=== PATIENT | female | born 1975 | race Caucasian/White ===

== ENCOUNTER 2021-07-12 15:58 | Emergency (ER) | payer OTHER, SELFPAY ==
[2021-07-12 16:02] VITALS: BP 123/82; PULSE 84; RESP 18; TEMP 36.8; O2SAT 98; BMI 31.9
== END 2021-07-12 21:00 | disposition left against medical advice (07) ==
PROVIDERS: Emergency Provider Emergency Medicine; PCP Family Medicine
DX: R26.2 Difficulty in walking, not elsewhere classified (principal)
CPT/HCPCS: 99281; 99282

== ENCOUNTER 2024-03-27 13:11 | Outpatient (AMB) | payer OTHER, SELFPAY ==
--- NOTE | 2024-03-27 13:13 | MHC.OFFVIS ---
Vital Signs 03/27/24 13:17 Height 5 ft 4 in Weight 192 lb BMI 33.0 BP 130/92 H Blood Pressure Location Lt brachial Position Sitting Pulse 88 Pulse Source Pulse Oximeter Pulse Oximetry (%) 99 Oxygen Delivery Method Room Air Intake Visit Reasons: Multiple Sclerosis Intake Note: Pain today 8/10 Relay Tester Helper Required: Yes Relay Tester Helper Language: Outpatient Phlebotomist Name: Daughter- Waldo Allergies vancomycin [VANCOMYCIN] Allergy (Severe, Verified 07/12/21 16:02) ITCHINESS HPI HPI Multiple Sclerosis: Details: Patient is a 49 years old Uzbek speaking female with sclerosis (onset 2006), depression, migraine headaches, presents today for initial evaluation of low back pain. Denies any inciting events, trauma, injury, or falls. Patient reports remote history of injections and physical therapy at [facility]. Back pain is axial in also radiates into left buttock and left lateral hip consistent this left sacroiliac joint pain and piriformis syndrome. She recently completed MRIs [facility] which showed mild disc bulges at L4-L5 and L5-S1, no spinal canal or neural foraminal narrowing at any level. Pain is constant in most severe in the mornings and the middle of the night which she rates 8/10. Pain affects her general activities, sleep, mobility, mood, social activities and quality of life. Denies any fever, chills, abdominal or groin pain, bladder or bowel dysfunction or saddle anesthesia. [facility] Location: Upper back radiates to lower back and left buttock Duration: 5+ years Characteristics of symptom or complaint: Aching, stabbing, sharp, tingling, shooting, throbbing, tiring Aggravating or associated factors: Movements, walking, prolonged standing or sitting, changing positions Relieving factors: Rest, modifying activities, lorazepam, duloxetine, oral steroids Treatment: PT, Injections, MRIs, tried and stopped baclofen and Lyrica [facility] Medical History (Updated 03/28/24 @ 19:12 by ZANDRA Shaw) Depression Multiple sclerosis Asthma Surgical History S/P cholecystectomy H/O: hysterectomy Social History Patient Tobacco Use Status: Never used Tobacco Review of Systems Const All systems reviewed & are unremarkable except as noted in HPI and below Physical Exam Vital Signs: Last Vital Signs Pulse 88 03/27/24 13:17 BP 130/92 H 03/27/24 13:17 Pulse Ox 99 03/27/24 13:17 Oxygen Delivery Method Room Air 03/27/24 13:17 BMI result Body Mass Index 33.0 General: Appears afebrile. Alert and oriented. Mood and affect appropriate. Follows and participates in conversation appropriately. Respiratory effort is unlabored. No cough. Able to transition from sit to stand unassisted. Ambulates with bilaterally normal heel strike and toe off, reports left upper extremity weakness with MS General: Yes no CVA tenderness Back/Spine/Pelvis Other: Patient is able to walk and stand on heels and tip toes with mild difficulty on the left otherwise demonstrating good motor tone. No limping. Non-antalgic,wide base gait. Can flex forward to 65-70 degrees and extend to 5-10 degrees before experiencing lumbar pain. Demonstrates 5/5 strength of quadriceps bilaterally as well as flexion/dorsiflexion of bilateral feet against resistance. 2+ pedal pulses bilaterally. Seated/Supine straight leg rise with dorsiflexion negative bilaterally. +2 patellar and achilles reflexes bilaterally. Facet loading test positive bilaterally. Rebecca sign positive on the left, Howard?s, [place], Pelvic compression and Stinchfield tests are positive on the left. Mild TTP to left piriformis muscle. No groin pain with I/E hip rotations. Back: no CVA tenderness Cervical Spine: cervical ROM normal, cervical muscular tenderness and No Cervical spine tenderness Thoracic/Lumbar Spine: thoracic and lumbar spine normal to inspection, No Thoracic/lumbar spine scar(s), Lasegue's sign negative, straight leg raise negative bilaterally, pain with thoraco-lumbar ROM, paraspinal muscle tenderness, thoraco-lumbar ROM limited, No thoracic spinal tenderness and lumbar spinal tenderness (L4-S1) Pelvis: buttock tenderness on the left Sacroiliac joints: on the right nontender and on the left tender to palpation Results Reviewed Results Reviewed: Assessment & Plan Assessment & Plan (1) Multiple sclerosis: Code(s): G35 - Multiple sclerosis Category: Medical (2) Muscle spasm: Code(s): M62.838 - Other muscle spasm Category: Medical (3) Sacroiliac joint pain: Code(s): M53.3 - Sacrococcygeal disorders, not elsewhere classified Category: Medical (4) Lumbar degenerative disc disease: Code(s): M51.36 - Other intervertebral disc degeneration, lumbar region Category: Medical (5) Low back pain: Code(s): M54.50 - Low back pain, unspecified Category: Medical Plan Schedule therapeutic left sacroiliac joint injection with local and fluoroscopy for left sided low back pain with positive provocative testing for SIJ pain. Expectations, risks and benefits were reviewed. Patient is aware she will be contacted to schedule this procedure. Patient patient is encouraged to continue daily physical activity as tolerated, stretching exercises, good posture, adequate hydration, well-balanced diet and weight optimization. Script provided for chlorzoxazone for muscle spasms. Patient reports she stopped baclofen due to ineffectiveness. Side effects and precautions were reviewed with patient and her family. All questions were answered and the patient is in agreement of plan. Follow-up after injections and sooner as needed. Medications: New chlorzoxazone 500 mg PO TID 30 days PRN 90 tabs 0RF muscle spasm G35 - Multiple sclerosis, M62.838 - Other muscle spasm Coding Level of Care Code New Pt Level 4 (89906) Diagnoses Multiple sclerosis G35 Muscle spasm M62.838 Sacroiliac joint pain M53.3 Lumbar degenerative disc disease M51.36 Low back pain M54.50
[2024-03-27 13:17] VITALS: BP 130/92; PULSE 88; O2SAT 99; BMI 33.0
== END 2024-03-27 13:46 | disposition home or self-care (01) ==
PROVIDERS: PCP Family Medicine; Visit Provider Nurse Practitioner Family
DX: G35 Multiple sclerosis (principal); M62.838 Other muscle spasm; M53.3 Sacrococcygeal disorders, not elsewhere classified; M51.36 Other intervertebral disc degeneration, lumbar region; M54.50 Low back pain, unspecified
CPT/HCPCS: 99204

== ENCOUNTER → 2024-03-27 13:11 | Outpatient (BNVA) | payer OTHER, SELFPAY | PROVIDERS: PCP Family Medicine; Visit Provider Nurse Practitioner Family | DX: G35 Multiple sclerosis (principal); M54.50 Low back pain, unspecified; M51.36 Other intervertebral disc degeneration, lumbar region; M53.3 Sacrococcygeal disorders, not elsewhere classified; M62.838 Other muscle spasm | CPT/HCPCS: 99202 ==

== ENCOUNTER 2024-07-01 06:15 | Outpatient (REF) | payer OTHER, SELFPAY | END 2024-07-01 06:16 | disposition home or self-care (01) | LOC: CF 06:15 | PROVIDERS: Visit Provider Anesthesiology | DX: M53.3 Sacrococcygeal disorders, not elsewhere classified (principal); G35 Multiple sclerosis; M62.838 Other muscle spasm; M51.369 Other intervertebral disc degeneration, lumbar region without mention of lumbar back pain or lower extremity pain; M51.360 Other intervertebral disc degeneration, lumbar region with discogenic back pain only | CPT/HCPCS: 27096; J2795; J3301; Q9967 ==

== ENCOUNTER 2024-07-01 10:28 | Outpatient (AMB) | payer OTHER, SELFPAY ==
--- NOTE | 2024-07-01 10:37 | A.OFFVIS_ITS ---
Vital Signs 07/01/24 10:38 07/01/24 11:34 Height 5 ft 4 in 5 ft 4 in Weight 192 lb 192 lb BMI 33.0 33.0 BP 124/82 124/86 Blood Pressure Location Lt brachial Lt brachial Position Sitting Sitting Respiration 16 16 Pulse 75 64 Pulse Source Pulse Oximeter Pulse Oximeter Pulse Oximetry (%) 99 99 Oxygen Delivery Method Room Air Room Air Comment pre-op post-op Intake Visit Reasons: LEFT THERAPEUTIC SIJ INJECTION Allergies vancomycin [VANCOMYCIN] Allergy (Severe, Verified 07/01/24 10:38) ITCHINESS PFSH Medical History (Updated 03/28/24 @ 19:12 by ZANDRA Shaw) Depression Multiple sclerosis Asthma Surgical History S/P cholecystectomy H/O: hysterectomy Social History Patient Tobacco Use Status: Never used Tobacco Physical Exam Vital Signs: Last Vital Signs Pulse 64 07/01/24 11:34 Resp 16 07/01/24 11:34 BP 124/86 07/01/24 11:34 Pulse Ox 99 07/01/24 11:34 Oxygen Delivery Method Room Air 07/01/24 11:34 BMI result Body Mass Index 33.0 Assessment & Plan Assessment & Plan (1) Multiple sclerosis: Code(s): G35 - Multiple sclerosis Category: Medical (2) Muscle spasm: Code(s): M62.838 - Other muscle spasm Category: Medical (3) Sacroiliac joint pain: Code(s): M53.3 - Sacrococcygeal disorders, not elsewhere classified Category: Medical (4) Lumbar degenerative disc disease: Code(s): M51.36 - Other intervertebral disc degeneration, lumbar region Category: Medical (5) Low back pain: Code(s): M54.50 - Low back pain, unspecified Category: Medical Plan Left therapeutic sacroiliac joint injection Informed consent was explained thoroughly to the patient.? All questions about benefits and risks for the procedure were answered. Patient came to the operating room and was positioned prone on the operating table with the pillow under the abdomen. The lower back and buttocks of the patient were prepped with ChloraPrep prepped and draped with sterile utility towels.? Sterilely draped C-arm was brought over the operating field and sq picture of patient's pelvis was demonstrated on the screen.? For the left joint tilting C-arm contralateral to the site of the joint the most posterior portion of the joints was superimposed with anterior silhoue tte of the joint.? Skin was injected in the projection of the joint slightly medial to the location of the joint with 25 gauge 1/2 inch needle using local lidocaine 2% . After that 22 gauge 3 and 1/2 inch needle was driven to the left joint in tunnel vision fashion.? When needle entered the joint capsule injection of the contr ast was performed demonstrating intra-articular and minimally periarticular spread of the contrast.? After that 4 cc. of ropivacaine 0.5% mixed with Kenalog 40 mg was injected in the joint. Upon completion of the injections the needle was removed and Band-Aid was applied.? Upon completion of the injection patient was taken outside of the operating room to the recovery room where recovered uneventfully. Orders: Orders FL guidance in treatment room Today M53.3 - Sacrococcygeal disorders, not elsewhere classified Coding Level of Care Code Procedure Only Diagnoses Multiple sclerosis G35 Muscle spasm M62.838 Sacroiliac joint pain M53.3 Lumbar degenerative disc disease M51.36 Low back pain M54.50
[2024-07-01 10:38] VITALS: BP 124/82; PULSE 75; RESP 16; O2SAT 99; BMI 33.0
[2024-07-01 11:34] VITALS: BP 124/86; PULSE 64; RESP 16; O2SAT 99; BMI 33.0
== END 2024-07-01 11:31 | disposition home or self-care (01) ==
LOC: HO.PMCPRC 10:28
PROVIDERS: PCP Family Medicine; Visit Provider Anesthesiology
DX: M53.3 Sacrococcygeal disorders, not elsewhere classified (principal)
CPT/HCPCS: 27096

== ENCOUNTER 2024-08-04 13:09 | Outpatient (REF) | payer OTHER, SELFPAY | END 2024-08-04 13:10 | disposition home or self-care (01) | LOC: HO.XRAY 13:09 | PROVIDERS: PCP Family Medicine; Visit Provider Nurse Practitioner Family | DX: M25.552 Pain in left hip (principal); M62.838 Other muscle spasm; G35 Multiple sclerosis; M53.3 Sacrococcygeal disorders, not elsewhere classified; M51.360 Other intervertebral disc degeneration, lumbar region with discogenic back pain only; Z79.899 Other long term (current) drug therapy; Z98.890 Other specified postprocedural states | CPT/HCPCS: 73502; 99212 ==

== ENCOUNTER 2024-08-04 13:09 | Outpatient (AMB) | payer OTHER, SELFPAY ==
--- NOTE | 2024-08-04 13:17 | A.OFFVIS_ITS ---
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 Burns. Patient reports no pain in the projection of SI joint area since procedure but continues to endorse axial low back pain and left hip with groin pain. Denies any left buttock pain, numbness or tingling, bladder or bowel dysfunction or saddle anesthesia. She reports good tolerance with methocarbamol and requests refill today. She has discontinued baclofen a month ago due it minimal benefit. Denies any recent cough, cold, infection, fever or other significant changes in medical history since last office visit. Past Procedures: 07/01/24: Left Therapeutic SIJ injeciton-100% ongoing pain relief PRIOR: Patient is a 49 years old Cape Verdean speaking female with sclerosis (onset 2006), depression, migraine headaches, presents today for initial evaluation of low back pain. Denies any inciting events, trauma, injury, or falls. Patient reports remote history of injections and physical therapy at [facility]. Back pain is axial in also radiates into left buttock and left lateral hip consistent this left sacroiliac joint pain and piriformis syndrome. She recently completed MRIs [facility] which showed mild disc bulges at L4-L5 and L5-S1, no spinal canal or neural foraminal narrowing at any level. Pain is constant in most severe in the mornings and the middle of the night which she rates 8/10. Pain affects her general activities, sleep, mobility, mood, social activities and quality of life. Denies any fever, chills, abdominal or groin pain, bladder or bowel dysfunction or saddle anesthesia. [facility] Location: Upper back radiates to lower back and left buttock Duration: 5+ years Characteristics of symptom or complaint: Aching, stabbing, sharp, tingling, shooting, throbbing, tiring Aggravating or associated factors: Movements, walking, prolonged standing or sitting, changing positions Relieving factors: Rest, modifying activities, lorazepam, duloxetine, oral steroids Treatment: PT, Injections, MRIs, tried and stopped baclofen and Lyrica [facility] Medical History Depression Multiple sclerosis Asthma Surgical History S/P cholecystectomy H/O: hysterectomy Social History Patient Tobacco Use Status: Never used Tobacco Review of Systems Const All systems reviewed & are unremarkable except as noted in HPI and below Physical Exam General: Appears afebrile. Alert and oriented. Mood and affect appropriate. Follows and participates in conversation appropriately. Respiratory effort is unlabored. No cough. Able to transition from sit to stand unassisted. Ambulates with bilaterally normal heel strike and toe off, reports left upper extremity weakness with MS General: Yes no CVA tenderness Back/Spine/Pelvis Other: Patient is able to walk and stand on heels and tip toes with mild difficulty on the left otherwise demonstrating good motor tone. No limping. Non-antalgic,wide base gait. Lumbar extension reproduces moderate pain, flexion forward minimal symptoms. Demonstrates 5/5 right and 4/5 left strength of quadriceps bilaterally as well as flexion/dorsiflexion of bilateral feet against resistance. 2+ pedal pulses bilaterally. Seated/Supine straight leg rise with dorsiflexion negative bilaterally. +2 patellar and achilles reflexes bilaterally. Facet loading test positive bilaterally. Rebecca sign negative bilaterally. Howard?s reproduces left lateral hip and groin pain, not low back pain. Moderate left groin pain with external hip rotations. Back: no CVA tenderness Cervical Spine: cervical ROM normal, cervical muscular tenderness and No Cervical spine tenderness Thoracic/Lumbar Spine: thoracic and lumbar spine normal to inspection, No Thoracic/lumbar spine scar(s), Lasegue's sign negative, straight leg raise negative bilaterally, pain with thoraco-lumbar ROM, paraspinal muscle tenderness, thoraco-lumbar ROM limited, No thoracic spinal tenderness and lumbar spinal tenderness (L4-S1) Pelvis: no buttock tenderness Sacroiliac joints: bilaterally nontender Extrem General: Yes capillary refill normal, Yes no clubbing, cyanosis or edema and Yes no calf tenderness Results Reviewed Results Reviewed: Assessment & Plan Assessment & Plan (1) Left hip pain: Code(s): M25.552 - Pain in left hip Category: Medical (2) Multiple sclerosis: Code(s): G35 - Multiple sclerosis Category: Medical (3) Muscle spasm: Code(s): M62.838 - Other muscle spasm Category: Medical (4) Sacroiliac joint pain: Code(s): M53.3 - Sacrococcygeal disorders, not elsewhere classified Category: Medical (5) Lumbar degenerative disc disease: Code(s): M51.36 - Other intervertebral disc degeneration, lumbar region Category: Medical (6) Low back pain: Code(s): M54.50 - Low back pain, unspecified Category: Medical Plan Patient is one month status post left therapeutic SIJ injection with no SIJ or left buttock pain today. She presents with left hip and left groin pain with external rotations and weight bearing. We will proceed with xray today to assess degree of left hip degenerative changes. Patient patient is encouraged to continue daily physical activity as tolerated, stretching exercises, good posture, adequate hydration, well-balanced diet and weight optimization. Refill sent for methocarbamol for muscle spasms per patient's request. All questions were answered and the patient is in agreement of plan. Follow-up for xray results and sooner as needed. Orders: Orders 2 XR hip LT w PEL1V Today M25.552 - Pain in left hip Medications: Changed 2 From methocarbamol 500 mg PO BID PRN 30 tabs 0RF muscle spasm M62.838 - Other muscle spasm To methocarbamol 500 mg PO BID 90 days PRN 180 tabs 1RF muscle spasm M62.838 - Other muscle spasm Coding Level of Care Code Est Pt Level 4 (30388) Complex EM visit Add On G2211 Diagnoses Left hip pain M25.552 Multiple sclerosis G35 Muscle spasm M62.838 Sacroiliac joint pain M53.3 Lumbar degenerative disc disease M51.36 Low back pain M54.50
[2024-08-04 13:21] VITALS: BP 132/80; PULSE 78; O2SAT 98; BMI 33.8
== END 2024-08-04 13:39 | disposition home or self-care (01) ==
LOC: HO.PMC 13:13
PROVIDERS: PCP Family Medicine; Visit Provider Nurse Practitioner Family
DX: M25.552 Pain in left hip (principal); G35 Multiple sclerosis; M62.838 Other muscle spasm; M53.3 Sacrococcygeal disorders, not elsewhere classified; M51.369 Other intervertebral disc degeneration, lumbar region without mention of lumbar back pain or lower extremity pain; M54.50 Low back pain, unspecified
CPT/HCPCS: 99214; G2211

== ENCOUNTER 2024-10-03 12:50 | Outpatient (AMB) | payer OTHER, SELFPAY ==
--- NOTE | 2024-10-03 12:55 | MHC.OFFVIS ---
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 Denies any recent trauma, injury or falls. Pain is predominatly axial and does not radiate into buttocks, hips or lower extremities, numbness or tingling, bladder or bowel dysfunction, or saddle anesthesia. She continues to reports good pain relief from left SI joint injection in July 2024. Patient reports partial pain relief with methocarbamol, heat therapy and activity modifications. Denies any recent cough, cold, infection, fever or other significant changes in medical history since last office visit. Past Procedures: 07/01/24: Left Therapeutic SIJ injeciton-100% ongoing pain relief PRIOR: Patient is a 49 years old Romansh speaking female with sclerosis (onset 2006), depression, migraine headaches, presents today for initial evaluation of low back pain. Denies any inciting events, trauma, injury, or falls. Patient reports remote history of injections and physical therapy at [facility]. Back pain is axial in also radiates into left buttock and left lateral hip consistent this left sacroiliac joint pain and piriformis syndrome. She recently completed MRIs [facility] which showed mild disc bulges at L4-L5 and L5-S1, no spinal canal or neural foraminal narrowing at any level. Pain is constant in most severe in the mornings and the middle of the night which she rates 8/10. Pain affects her general activities, sleep, mobility, mood, social activities and quality of life. Denies any fever, chills, abdominal or groin pain, bladder or bowel dysfunction or saddle anesthesia. [facility] Location: Upper back radiates to lower back and left buttock Duration: 5+ years Characteristics of symptom or complaint: Aching, stabbing, sharp, tingling, shooting, throbbing, tiring Aggravating or associated factors: Movements, walking, prolonged standing or sitting, changing positions Relieving factors: Rest, modifying activities, lorazepam, duloxetine, oral steroids Treatment: PT, Injections, MRIs, tried and stopped baclofen and Lyrica [facility] Medical History Depression Multiple sclerosis Asthma Surgical History S/P cholecystectomy H/O: hysterectomy Social History Patient Tobacco Use Status: Never used Tobacco Review of Systems Const All systems reviewed & are unremarkable except as noted in HPI and below Physical Exam Vital Signs: Last Vital Signs Pulse 89 10/03/24 12:57 BP 135/85 10/03/24 12:57 Pulse Ox 99 10/03/24 12:57 Oxygen Delivery Method Room Air 10/03/24 12:57 BMI result Body Mass Index 33.8 General: Appears afebrile. Alert and oriented. Mood and affect appropriate. Follows and participates in conversation appropriately. Respiratory effort is unlabored. No cough. Able to transition from sit to stand unassisted. Ambulates with bilaterally normal heel strike and toe off, reports left upper extremity weakness with MS General: Yes no CVA tenderness Back/Spine/Pelvis Other: Patient is able to walk and stand on heels and tip toes with mild difficulty on the left otherwise demonstrating good motor tone. No limping. Non-antalgic, wide base gait. Lumbar extension reproduces moderate-severe pain, flexion is intact and does not reproduce pain. Demonstrates 5/5 right and 4/5 left strength of quadriceps bilaterally as well as flexion/dorsiflexion of bilateral feet against resistance. 2+ pedal pulses bilaterally. Straight leg rise with dorsiflexion negative bilaterally. +2 patellar and achilles reflexes bilaterally. Facet loading test positive bilaterally. Rebecca sign negative bilaterally. Back: no CVA tenderness Cervical Spine: cervical ROM normal, cervical muscular tenderness and No Cervical spine tenderness Thoracic/Lumbar Spine: thoracic and lumbar spine normal to inspection, No Thoracic/lumbar spine scar(s), Lasegue's sign negative, straight leg raise negative bilaterally, pain with thoraco-lumbar ROM, paraspinal muscle tenderness, thoraco-lumbar ROM limited, No thoracic spinal tenderness and lumbar spinal tenderness (L4-S1) Pelvis: no buttock tenderness Sacroiliac joints: bilaterally nontender Extrem General: Yes capillary refill normal, Yes no clubbing, cyanosis or edema and Yes no calf tenderness Results Reviewed Results Reviewed: XR HIP 1 VIEW LEFT WITH PELVIS 08/04/24 CLINICAL INFORMATION: , M25.552 - Pain in left hip FINDINGS: There is no evidence of acute fracture or dislocation. There are mild degenerative arthritic changes of the hip evident by sclerotic changes of the acetabular roof and narrowing of the joint space. Mild degenerative changes of the SI joints. Adjacent pubic rami are intact. Surrounding soft tissues are unremarkable. 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 Assessment & Plan Assessment & Plan (1) Sacroiliac joint pain: Code(s): M53.3 - Sacrococcygeal disorders, not elsewhere classified Category: Medical (2) Lumbar degenerative disc disease: Code(s): M51.36 - Other intervertebral disc degeneration, lumbar region Category: Medical (3) Low back pain: Code(s): M54.50 - Low back pain, unspecified Category: Medical (4) Lumbar spondylosis: Code(s): M47.816 - Spondylosis without myelopathy or radiculopathy, lumbar region Category: Medical Plan Schedule Bilateral Diagnostic L3-L4 DR L5 MBB injections with local and fluoroscopy for axial low back pain. Expectations, risks and benefits were reviewed. Patient is aware she will be contacted to schedule this procedure. If she has significant relief from the diagnostic blocks for his axial low back pain, will consider either therapeutic injections, Sprint PNS or RFA depending on her preference. Informational pamphlets provided to patient. All questions were answered and the patient is in agreement of plan. Follow-up after injections and sooner as needed. Coding Level of Care Code Est Pt Level 4 (12233) Complex EM visit Add On G2211 Diagnoses Sacroiliac joint pain M53.3 Lumbar degenerative disc disease M51.36 Low back pain M54.50 Lumbar spondylosis M47.816
[2024-10-03 12:57] VITALS: BP 135/85; PULSE 89; O2SAT 99; BMI 33.8
== END 2024-10-03 13:11 | disposition home or self-care (01) ==
PROVIDERS: PCP Family Medicine; Visit Provider Nurse Practitioner Family
DX: M53.3 Sacrococcygeal disorders, not elsewhere classified (principal); M51.369 Other intervertebral disc degeneration, lumbar region without mention of lumbar back pain or lower extremity pain; M54.50 Low back pain, unspecified; M47.816 Spondylosis without myelopathy or radiculopathy, lumbar region
CPT/HCPCS: 99214; G2211

== ENCOUNTER → 2024-10-03 12:50 | Outpatient (BNVA) | payer OTHER, SELFPAY | PROVIDERS: PCP Family Medicine; Visit Provider Nurse Practitioner Family | DX: M53.3 Sacrococcygeal disorders, not elsewhere classified (principal); M51.360 Other intervertebral disc degeneration, lumbar region with discogenic back pain only; M54.50 Low back pain, unspecified; M47.816 Spondylosis without myelopathy or radiculopathy, lumbar region | CPT/HCPCS: 99212 ==

== ENCOUNTER 2024-12-02 06:34 | Outpatient (REF) | payer OTHER, SELFPAY ==
--- NOTE | ~2024-12-02 | FL_ITS ---
EXAMINATION: FL GUIDANCE ONLY HISTORY: M47.816 - Spondylosis without myelopathy or radiculopathy, lumbar region COMPARISON: None available. TECHNIQUE: Fluoroscopy time: 0.6 minutes. Cumulative Dose: 20.2 mGy. DAP: 0.351 mGym2 Images: 12. FINDINGS: Images demonstrate needles and contrast material in the regions of the bilateral L3-4, L4-5, and L5-S1 facet joints. FL/FL guidance in treatment room IMPRESSION: Fluoroscopy during procedure. Please see procedure report for additional information. Electronically signed by: Dominik Jennings MD 12/05/2024 09:10 AM EPI
--- OUTSIDE RECORDS SUMMARY | 2024-12-02 06:37 | XMS_ITS | Clinical Summary ---
Author Organization [facility] [place] [address] Phone Care Team Providers Care Assembler Molded Frames Name Role Phone Nell Chatterjee MD Primary Care Provider [phone] Allergies Active Allergy Reactions Criticality Noted Date Comments Vancomycin Itching 10/13/2020 Medications sodium chloride 0.9 % parenteral solution 500 mL with ocrelizumab 30 mg/mL solution Infuse into a venous catheter. Active albuterol HFA (ProAir HFA) 90 mcg/actuation inhaler 2 PUFFS INHALATION EVERY 4 HOURS,FOR 30 DAYS, NEEDED FOR WHEEZING/SHORTN ESS OF BREATH 1 Active baclofen (LIORESAL) 10 mg tablet Take 1 tablet (10 mg total) by mouth 3 (three) times a day. 2 Active DULoxetine (CYMBALTA) [address] capsule Take 1 capsule (60 mg total) by mouth. 1 Active montelukast (SINGULAIR) 10 mg tablet Take 1 tablet (10 mg total) by mouth 1 (one) time each day. 1 Active pregabalin (LYRICA) 150 mg capsule 1 po bid 2 Active cholecalciferol (VITAMIN D-3) 50 mcg (2,000 unit) capsule 1 po qd 30 capsule 5 4 Active ergocalciferol (VITAMIN D-2) 1,250 mcg (50,000 unit) capsule TAKE 1 CAPSULE BY MOUTH ONE TIME PER WEEK 12 capsule 4 Active Active Problems Problem Noted Date Diagnosed Date Multiple sclerosis 10/20/2021 Depression 10/14/2020 Intramural leiomyoma of uterus 02/12/2007 Papanicolaou smear of cervix with low grade squamous intraepithelial lesion (LGSIL) 02/12/2007 Encounters Date Type Department Care Team Description 09/26/2024 11:00 AM EST Office Visit [facility] [place] - [place] 175 [facility] [address] [place] [phone] Christina Martinez PA Chronic migraine without aura without status migrainosus, not intractable (Primary Dx) from Last 3 Months Medical History Medical History Date Comments MS (multiple sclerosis) ([facility]) DX:MS (multiple sclerosis) ([facility]) Family History Medical History Relation Name Comments Multiple sclerosis Brother Relation Name Status Comments Brother Social History Tobacco Use Types Packs/Day Years Used Date Smoking Tobacco: Never Smokeless Tobacco: Never Tobacco Cessation:Counseling Given: Not Answered Comments Unknown Sex and Gender Information Value Date Recorded Sex Assigned at Not on file Legal Sex Female 10:48 PM EST Gender Identity Not on file Sexual Orientation Not on file Obstetrics History Last Filed Vital Signs Vital Sign Reading Time Taken Comments Blood Pressure 128/85 09/26/2024 11:04 AM EST Pulse 89 09/26/2024 11:04 AM EST Temperature 36.6 ??C (97.8 ??F) 09/26/2024 11:[address] Respiratory Rate - - Oxygen Saturation - - Inhaled Oxygen Concentration - - Weight 89.4 kg (197 lb) 09/26/2024 11:04 AM EST Height 162.6 cm (5' 4 ) 09/26/2024 11:04 AM EST Body Mass Index 33.81 09/26/2024 11:04 AM EST Plan of Treatment Upcoming Encounters Date Type Department Care Team (Late st Contact Info) Description 01/13/2025 8:00 AM EDT Appointment [facility] [place] Outpatient Rehabilititation - [address] [phone] 01/13/2025 8:00 AM EDT Office Visit [facility] 175 [facility] [address] [place] [address] Bo Benites MD [address] [place] [phone] Health Maintenance Due Date Last Done Comments Breast Cancer Screening 1973 Hepatitis B Vaccines (1 of 3 - 19+ 3-dose series) 02/01/1992 Cervical Cancer Screening: Pap Smear 1994 Colorectal Cancer Screening: Colonoscopy 09/08/2022 Depression Screening 09/08/2022 HIV Screening 09/08/2022 Hepatitis C Screening 09/08/2022 Social Influencers of Health Screening 09/08/2022 Zoster Vaccines (2 of 2) 07/27/2023 06/01/2023 DTaP,Tdap,and Td Vaccines (3 - Td or Tdap) 07/08/2031 07/08/2021, 06/04/2013 Pneumococcal Vaccine: 50+ Years Completed 07/19/2023 Pneumococcal Vaccine: Pediatrics (0 to 5 Years) and At-Risk Patients (6 to 64 Years) Aged Out 07/19/2023 No longer eligible based on patient's age to complete this topic COVID-19 Vaccine Completed 07/04/2024, , 08/18/2022, Additional history exists Influenza Vaccine Completed 07/04/2024, , 08/18/2022, Additional history exists HIB Vaccines Aged Out No longer eligi ble based on patient's age to complete this topic HPV Vaccines Aged Out No longer eligi ble based on patient's age to complete this topic Hepatitis A Vaccines Aged Out No long er eligible based on patient's age to complete this topic IPV Vaccines Aged Out No longer eligi ble based on patient's age to complete this topic MMR Vaccines Aged Out No longer eligi ble based on patient's age to complete this topic Meningococcal ACWY Vaccine Aged Out N o longer eligible based on patient's age to complete this topic Meningococcal B Vacine Aged Out No lo nger eligible based on patient's age to complete this topic RSV Immunization Patients Under 20 months Aged Out No longer eligible based on patient's age to complete this topic Varicella Vaccines Aged Out No longer eligible based on patient's age to complete this topic Insurance [facility] [employer] Advance Directives Documents on File Type Date Recorded 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 Health Care Decision (hx) 10/18/2018 AD OSEGUERA DIRECTIVE Health Care Decision (hx) 10/18/2018 AD OSEGUERA DIRECTIVE Health Care Decision (hx) 10/18/2018 AD OSEGUERA DIRECTIVE Health Care Decision (hx) 10/18/2018 AD OSEGUERA DIRECTIVE Health Care Decision (hx) 10/18/2018 AD OSEGUERA DIRECTIVE Health Care Decision (hx) 10/18/2018 AD OSEGUERA DIRECTIVE Health Care Decision (hx) 10/18/2018 AD OSEGUERA DIRECTIVE Health Care Decision (hx) 10/18/2018 AD OSEGUERA DIRECTIVE Health Care Decision (hx) 10/18/2018 AD OSEGUERA DIRECTIVE Health Care Decision (hx) 10/18/2018 AD OSEGUERA DIRECTIVE Health Care Decision (hx) 10/18/2018 AD OSEGUERA DIRECTIVE Health Care Decision (hx) 10/18/2018 AD OSEGUERA DIRECTIVE Health Care Decision (hx) 10/18/2018 AD OSEGUERA DIRECTIVE Health Care Decision (hx) 10/18/2018 AD OSEGUERA DIRECTIVE Health Care Decision (hx) 10/18/2018 AD OSEGUERA DIRECTIVE Health Care Decision (hx) 10/18/2018 AD OSEGUERA DIRECTIVE Health Care Decision (hx) 10/18/2018 AD OSEGUERA DIRECTIVE Health Care Decision (hx) 10/18/2018 AD OSEGUERA DIRECTIVE Health Care Decision (hx) 10/18/2018 AD OSEGUERA DIRECTIVE Health Care Decision (hx) 10/18/2018 AD OSEGUERA DIRECTIVE Health Care Decision (hx) 10/18/2018 AD OSEGUERA DIRECTIVE Health Care Decision (hx) 10/18/2018 AD OSEGUERA DIRECTIVE Health Care Decision (hx) 10/18/2018 AD OSEGUERA DIRECTIVE Health Care Decision (hx) 10/18/2018 AD OSEGUERA DIRECTIVE Health Care Decision (hx) 10/18/2018 AD OSEGUERA DIRECTIVE Health Care Decision (hx) 10/18/2018 AD OSEGUERA DIRECTIVE Health Care Decision (hx) 10/18/2018 AD OSEGUERA DIRECTIVE Health Care Decision (hx) 10/18/2018 AD OSEGUERA DIRECTIVE Health Care Decision (hx) 10/18/2018 AD OSEGUERA DIRECTIVE Health Care Decision (hx) 10/18/2018 AD OSEGUERA DIRECTIVE Health Care Decision (hx) 10/18/2018 AD OSEGUERA DIRECTIVE Health Care Decision (hx) 10/18/2018 AD OSEGUERA DIRECTIVE Health Care Decision (hx) 10/18/2018 AD OSEGUERA DIRECTIVE Health Care Decision (hx) 10/18/2018 AD OSEGUERA DIRECTIVE Health Care Decision (hx) 10/18/2018 AD OSEGUERA DIRECTIVE Health Care Decision (hx) 10/18/2018 AD OSEGUERA DIRECTIVE Health Care Decision (hx) 10/18/2018 AD OSEGUERA DIRECTIVE Health Care Decision (hx) 10/18/2018 AD OSEGUERA DIRECTIVE Health Care Decision (hx) 10/18/2018 AD OSEGUERA DIRECTIVE Health Care Decision (hx) 10/18/2018 AD OSEGUERA DIRECTIVE Health Care Decision (hx) 10/18/2018 AD OSEGUERA DIRECTIVE Health Care Decision (hx) 04/30/2013 AD OSEGUERA DIRECTIVE Health Care Decision (hx) 04/30/2013 AD OSEGUERA DIRECTIVE Health Care Decision (hx) 04/30/2013 AD OSEGUERA DIRECTIVE Health Care Decision (hx) 04/30/2013 AD OSEGUERA DIRECTIVE Health Care Decision (hx) 04/30/2013 AD OSEGUERA DIRECTIVE Health Care Decision (hx) 04/30/2013 AD OSEGUERA DIRECTIVE Health Care Decision (hx) 04/30/2013 AD OSEGUERA DIRECTIVE Health Care Decision (hx) 04/30/2013 AD OSEGUERA DIRECTIVE Health Care Decision (hx) 04/30/2013 AD OSEGUERA DIRECTIVE Health Care Decision (hx) 04/30/2013 AD OSEGUERA DIRECTIVE Health Care Decision (hx) 04/30/2013 AD OSEGUERA DIRECTIVE Health Care Decision (hx) 04/30/2013 AD OSEGUERA DIRECTIVE Health Care Decision (hx) 04/30/2013 AD OSEGUERA DIRECTIVE Health Care Decision (hx) 04/30/2013 AD OSEGUERA DIRECTIVE Health Care Decision (hx) 04/30/2013 AD OSEGUERA DIRECTIVE Health Care Decision (hx) 04/30/2013 AD OSEGUERA DIRECTIVE Health Care Decision (hx) 04/30/2013 AD OSEGUERA DIRECTIVE Health Care Decision (hx) 04/30/2013 AD OSEGUERA DIRECTIVE Health Care Decision (hx) 04/30/2013 AD OSEGUERA DIRECTIVE Health Care Decision (hx) 04/30/2013 AD OSEGUERA DIRECTIVE Health Care Decision (hx) 04/30/2013 AD OSEGUERA DIRECTIVE Health Care Decision (hx) 04/30/2013 AD OSEGUERA DIRECTIVE Health Care Decision (hx) 04/30/2013 AD OSEGUERA DIRECTIVE Health Care Decision (hx) 04/30/2013 AD OSEGUERA DIRECTIVE Health Care Decision (hx) 04/30/2013 AD OSEGUERA DIRECTIVE Health Care Decision (hx) 04/30/2013 AD OSEGUERA DIRECTIVE Health Care Decision (hx) 04/30/2013 AD OSEGUERA DIRECTIVE Health Care Decision (hx) 04/30/2013 AD OSEGUERA DIRECTIVE Health Care Decision (hx) 04/30/2013 AD OSEGUERA DIRECTIVE Health Care Decision (hx) 04/30/2013 AD OSEGUERA DIRECTIVE Health Care Decision (hx) 04/30/2013 AD OSEGUERA DIRECTIVE Health Care Decision (hx) 04/30/2013 AD OSEGUERA DIRECTIVE Health Care Decision (hx) 04/30/2013 AD OSEGUERA DIRECTIVE Health Care Decision (hx) 04/30/2013 AD OSEGUERA DIRECTIVE Health Care Decision (hx) 04/30/2013 AD OSEGUERA DIRECTIVE Health Care Decision (hx) 04/30/2013 AD OSEGUERA DIRECTIVE Health Care Decision (hx) 04/30/2013 AD OSEGUERA DIRECTIVE Health Care Decision (hx) 04/30/2013 AD OSEGUERA DIRECTIVE Health Care Decision (hx) 04/30/2013 AD OSEGUERA DIRECTIVE Health Care Decision (hx) 04/30/2013 AD OSEGUERA DIRECTIVE Health Care Decision (hx) 04/30/2013 AD OSEGUERA DIRECTIVE Care Teams Assembler Molded Frames Relationship Specialty Start Date End Date Nell Chatterjee MD [address] [place] [address] Dr Moon, [place] [address] PCP - General 03/22/23
--- OUTSIDE RECORDS SUMMARY | 2024-12-02 06:37 | XMS_ITS | Encounter Summary ---
Author Organization [facility] Address [address] [place] [address] Care Team Providers Care Customer Account Specialist Name Role Phone Nell Chatterjee MD Primary Care Provider [phone] Encounter Details Date Type Department Care Team (Late st Contact Info) Description 07/15/2024 8:29 AM EDT Hospital Encounter TH HISTORIC ENCOUNTERS EASTERN CONVERSION ONLY Social History Tobacco Use Types Packs/Day Years Used Date Smoking Tobacco: Never Smokeless Tobacco: Never Comments Unknown Sex and Gender Information Value Date Recorded Sex Assigned at Not on file Legal Sex Female 10:48 PM EST Gender Identity Not on file Sexual Orientation Not on file documented as of this encounter Last Filed Vital Signs Vital Sign Reading Time Taken Comments Blood Pressure - - Pulse - - Temperature - - Respiratory Rate - - Oxygen Saturation - - Inhaled Oxygen Concentration - - Weight 88.9 kg (196 lb) 05/27/2024 2:08 PM EDT Height 162.6 cm (5' 4 ) 05/27/2024 2:08 PM EDT Body Mass Index 33.64 05/27/2024 2:08 PM EDT documented in this encounter Plan of Treatment Upcoming Encounters Date Type Department Care Team (Late st Contact Info) Description 01/13/2025 8:00 AM EDT Appointment [facility] Out[facility] - [place] [address] [facility] [address] [place] [phone] 01/13/2025 8:00 AM EDT Office Visit [facility] [place] 175 [facility] [address] [place] [phone] Bo Benites MD [address] [phone] documented as of this encounter Visit Diagnoses Not on filedocumented in this encounter Care Teams Customer Account Specialist Relationship Specialty Start Date End Date Nell Chatterjee MD [address] [place] [address] [place] [address] PCP - General 03/22/23 documented as of this encounter
--- OUTSIDE RECORDS SUMMARY | 2024-12-02 06:37 | XMS_ITS ---
Author Name [facility] Organization Unknown History of Medication Use Medication Directions Dispensed Refills Start Date End Date Stat us Cholecalciferol (Vitamin D3) 50 MCG (1999 UT) capsule TAKE 1 CAPSULE BY MOUTH EVERY DAY 03/22/2023 active baclofen (LIORESAL) 10 MG tablet TAKE 1 TABLET BY MOUTH THREE TIMES A DAY 02/12/2023 active topiramate (Topamax) 25 MG tablet 1 po hs x 1 week, then 1 po bid x 1 week, then 1 po in am and 2 po hs x 1 week, then 2 po bid 01/28/2024 active mirtazapine (REMERON) 7.5 MG tablet TAKE 1 TABLET BY MOUTH AT BEDTIME STOP IF EATING TO MUCH OR GAIN WEIGHT 05/25/2022 aborted D3 Super Strength 50 MCG (1999) CAPS TAKE 1 CAPSULE BY MOUTH EVERY DAY 09/19/2023 active methocarbamol (ROBAXIN) 500 MG tablet TAKE 1 TABLET BY MOUTH TWICE A DAY NEEDED FOR MUSCLE SPASM 04/02/2024 active Ubrogepant (Ubrelvy) 100 MG TABS Take 100 mg by mouth daily as needed (max 10/month). 07/27/2023 active methylPREDNISolone sodium succinate (SOLU-Medrol) injection 125 mg 125 mg, Intravenous, Once, On Sun01/15/24 at 0945, For 1 doseGive 30 minutes prior to ocrelizumab. ??Administer over 2-3 minutes 07/18/2023 4 completed acetaminophen (TYLENOL) tablet 975 mg 975 mg, Oral, Once, On Sun01/15/24 at 0945, For 1 doseGive 30 minutes prior to ocrelizumab. 07/18/2023 4 completed ergocalciferol (VITAMIN D2) capsule 72875 units Take 1 capsule (50,000 Units total) by mouth once a week. 12/10/2023 active Problems Problem Status Onset Date Problem Type Date of Resoluti on Source Depression active 2020-10-14 ProblemAct CTTHNEM G Multiple sclerosis active 2021-10-20 ProblemAct CTTHNEMG
== END 2024-12-02 06:35 | disposition home or self-care (01) ==
LOC: CF 06:34
PROVIDERS: Visit Provider Anesthesiology
DX: M47.816 Spondylosis without myelopathy or radiculopathy, lumbar region (principal)
CPT/HCPCS: 64493; 64494; J2003; J2795; Q9967

== ENCOUNTER 2024-12-02 10:30 | Outpatient (AMB) | payer OTHER, SELFPAY ==
[2024-12-02 10:32] VITALS: BP 128/82; PULSE 100; O2SAT 100
--- NOTE | 2024-12-02 10:32 | MHC.OFFVIS ---
Vital Signs 12/02/24 10:32 12/02/24 11:39 BP 128/82 142/79 H Blood Pressure Location Rt brachial Rt brachial Position Sitting Sitting Pulse 100 75 Pulse Source Pulse Oximeter Pulse Oximeter Pulse Oximetry (%) 100 98 Oxygen Delivery Method Room Air Room Air Comment Pre-Op Post-Op Intake Visit Reasons: BILATERAL DIAGNOSTIC L3, L4, DRL5 MBB Allergies vancomycin [VANCOMYCIN] Allergy (Severe, Verified 10/03/24 12:58) ITCHINESS PFSH Medical History Depression Multiple sclerosis Asthma Surgical History S/P cholecystectomy H/O: hysterectomy Social History Patient Tobacco Use Status: Never used Tobacco Physical Exam Vital Signs: Last Vital Signs Pulse 75 12/02/24 11:39 BP 142/79 H 12/02/24 11:39 Pulse Ox 98 12/02/24 11:39 Oxygen Delivery Method Room Air 12/02/24 11:39 Assessment & Plan Assessment & Plan (1) Sacroiliac joint pain: Code(s): M53.3 - Sacrococcygeal disorders, not elsewhere classified Category: Medical (2) Lumbar degenerative disc disease: Code(s): M51.36 - Other intervertebral disc degeneration, lumbar region Category: Medical (3) Low back pain: Code(s): M54.50 - Low back pain, unspecified Category: Medical (4) Lumbar spondylosis: Code(s): M47.816 - Spondylosis without myelopathy or radiculopathy, lumbar region Category: Medical Plan Diagnostic bilateral medial branch block L3, L4, dorsal ramus L5. Informed consent was thoroughly explained to the patient before the procedure.? The patient came to the operating room.? She was positioned prone on operating table with a pillow under her abdomen.? Time-out was performed delineating correct site and side of the procedure, nature of the injection, name and date of of the patient. The lower back and upper buttocks of the patient was prepped with ChloraPrep and draped with sterile utility towels.? C-arm was brought over the operating field and the point of interest were delineated as confluence of the superior articular process of L4 vertebra and L5 vertebra bilaterally with corresponding transverse process bilaterally., as well as confluence of the superior articular process of S1 on the bilaterally with sacral ala bilaterally. The point of interest projection to the skin was injected with small amount of mixture of lidocaine 2% and ropivacaine 0.5%. After that 22 gauge 3-1/2 inch needle was driven to point of interest in tunnel vision fashion. When needle gently contacted the bone injection of the contrast was performed delineating no intravascular and no intrathecal spread of the contrast. After that injection of the small amount of ropivacaine 0.5% less than 1 cc into each target site was performed. Upon completion of the injections the needle was removed sterile Band-Aids were applied. The patient tolerated procedure well. She was given a pain diary to complete after the procedure. Orders: Orders FL guidance in treatment room Today M47.816 - Spondylosis without myelopathy or radiculopathy, lumbar region Coding Level of Care Code Procedure Only Diagnoses Sacroiliac joint pain M53.3 Lumbar degenerative disc disease M51.36 Low back pain M54.50 Lumbar spondylosis M47.816
[2024-12-02 11:39] VITALS: BP 142/79; PULSE 75; O2SAT 98
--- OUTSIDE RECORDS SUMMARY | 2024-12-02 12:47 | XMS_ITS | Clinical Summary ---
Author Organization [facility] [place] [address] Phone Care Team Providers Care Medicinal Chemist Name Role Phone Nell Chatterjee MD Primary Care Provider [phone] Allergies Active Allergy Reactions Criticality Noted Date [...] Description 09/26/2024 11:00 AM EST Office Visit [facility] [place] - [place] 175 [facility] 150 [place] [phone] Christina Martinez PA Chronic migraine without aura without status migrainosus, not intractable (Primary Dx) from Last 3 Months Medical History Medical History Date Comments MS (multiple sclerosis) ([facility]) DX:MS (multiple sclerosis) ([facility]) Family History Medical History Relation Name Comments [...] Info) Description 01/13/2025 8:00 AM EDT Appointment [facility] [place] Outpatient Rehabilititation - [address] [phone] 01/13/2025 8:00 AM EDT Office Visit [facility] 175 [facility] [address] [place] [address] Bo Benites MD [address] [place] [phone] Health Maintenance Due Date Last Done [...] patient's age to complete this topic Insurance [facility] Advance Directives Documents on File Type Date Recorded 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
--- OUTSIDE RECORDS SUMMARY | 2024-12-02 12:47 | XMS_ITS | Encounter Summary ---
Author Organization [facility] Address [address] [place] [address] Care Team Providers Care Metal Molder Name Role Phone Nell Chatterjee MD Primary Care Provider [phone] Encounter Details Date Type Department Care Team [...] Info) Description 01/13/2025 8:00 AM EDT Appointment [facility] Out[facility] - [place] [address] [facility] [address] [facility] 150 [place] [phone] 01/13/2025 8:00 AM EDT Office Visit [facility] [place] [facility] [place] 175 [facility] 150 [place] [phone] Bo Benites MD [address] [phone] documented as of this encounter Visit Diagnoses Not on filedocumented in this encounter Care Teams Metal Molder Relationship Specialty Start Date End Date Nell Chatterjee MD [address] [place] [address] [place] [address] PCP - General 03/22/23 documented as of this encounter
--- OUTSIDE RECORDS SUMMARY | 2024-12-02 12:47 | XMS_ITS | Clinical Summary ---
Author Organization [facility] Address [address] [place] [address] Care Team Providers Care Sustainable Design Consultant Name Role Phone Nell Chatterjee MD Primary Care Provider [phone] Allergies Active Allergy Reactions Criticality Noted Date Comments Vancomycin Itching 10/13/2020 Medications Medication Sig Dispensed Refills Start Date End Date Status montelukast (SINGULAIR) 10 MG tablet Take 1 tablet (10 mg total) by mouth daily. 0 10/12/2020 Active ProAir HFA 108 (90 Base) MCG/ACT inhaler 2 PUFFS INHALATION EVERY 4 HOURS,FOR 30 DAYS, NEEDED FOR WHEEZING/SHORTNESS OF BREATH 0 05/09/2021 Active DULoxetine (CYMBALTA) DR capsule 60 mg Take 1 capsule (60 mg total) by mouth daily. 0 05/12/2021 Active Ocrelizumab (OCREVUS IV) Inject into the vein. 0 Active pregabalin (LYRICA) capsule 150 mg 1 po bid 60 capsule 5 07/11/2022 Active ergocalciferol (VITAMIN D2) capsule 71114 units Take 1 capsule (50,000 Units total) by mouth once a week. 4 capsule 12 12/10/2023 Active baclofen (LIORESAL) 10 MG tablet TAKE 1 TABLET BY MOUTH THREE TIMES A DAY 270 tablet 3 01/22/2024 Active topiramate (Topamax) 25 MG tablet 1 po hs x 1 week, then 1 po bid x 1 week, then 1 po in am and 2 po hs x 1 week, then 2 po bid 120 tablet 5 01/28/2024 Active Cholecalciferol (Vitamin D3) 50 MCG (2000 UT) capsule TAKE 1 CAPSULE BY MOUTH EVERY DAY 90 capsule 1 03/13/2024 Active methocarbamol (ROBAXIN) 500 MG tablet TAKE 1 TABLET BY MOUTH TWICE A DAY NEEDED FOR MUSCLE SPASM 0 04/02/2024 Active verapamil (VERELAN PM) 120 MG 24 hr capsule TAKE 1 CAPSULE BY MOUTH EVERY DAY 90 capsule 1 06/03/2024 Active Active Problems Problem Noted Date Diagnosed Date Multiple sclerosis 10/20/2021 Depression 10/14/2020 Family History Medical History Relation Name Comments Multiple sclerosis Brother Relation Name Status Comments Brother Social History Tobacco Use Types Packs/Day Years Used Date Smoking Tobacco: Never Smokeless Tobacco: Never Tobacco Cessation:Counseling Given: Not Answered Sex and Gender Information Value Date Recorded Sex Assigned at Not on file Gender Identity Not on file Sexual Orientation Not on file Job Start Date Occupation Industry Not on file Not on file Not on file Last Filed Vital Signs Vital Sign Reading Time Taken Comments Blood Pressure 131/86 07/15/2024 12:28 PM EDT Pulse 93 07/15/2024 12:28 PM EDT Temperature 36 ??C (96.8 ??F) 07/15/2024 12:28 PM EDT Respiratory Rate 16 07/15/2024 12:28 PM EDT Oxygen Saturation 94% 07/15/2024 12:28 PM EDT Inhaled Oxygen Concentration - - Weight 88.9 kg (196 lb) 05/27/2024 2:08 PM EDT Height 162.6 cm (5' 4 ) 05/27/2024 2:08 PM EDT Body Mass Index 33.64 05/27/2024 2:08 PM EDT Plan of Treatment Health Maintenance Due Date Last Done Comments Hepatitis B Vaccines (1 of 3 - 3-dose series) 1973 Hepatitis C Screening 1973 COVID-19 Vaccine (#1) 1973 Depression Screening 1985 BMI Counseling 1991 Preventative Health Evaluation 1991 DTap / Tdap / Td (1 - Tdap) 02/01/1992 Cervical Cancer Screening (P ap Smear) 1994 Colon Cancer Screening (Colonoscopy) 2018 Breast Cancer Screening (Mammogram) 2023 Shingrix-Zoster Vaccine (1 of 2) 2023 Influenza Vaccine (#1) 2024 Pneumococcal Vaccine Aged Out No long er eligible based on patient's age to complete this topic RSV Ped < 20 months Aged Out No longe r eligible based on patient's age to complete this topic Care Teams Sustainable Design Consultant Relationship Specialty Start Date End Date Nell Chatterjee MD [address] [facility] [address] [place] [phone] PCP - General Internal Medicine 03/22/23
== END 2024-12-02 11:54 | disposition home or self-care (01) ==
LOC: HO.PMCPRC 10:30
PROVIDERS: PCP Family Medicine; Visit Provider Anesthesiology
DX: M47.816 Spondylosis without myelopathy or radiculopathy, lumbar region (principal); M53.3 Sacrococcygeal disorders, not elsewhere classified; M51.369 Other intervertebral disc degeneration, lumbar region without mention of lumbar back pain or lower extremity pain; M54.50 Low back pain, unspecified
CPT/HCPCS: 64493; 64494

== ENCOUNTER 2024-12-09 15:02 | Outpatient (AMB) | payer OTHER, SELFPAY ==
--- NOTE | 2024-12-09 15:22 | MHC.OFFVIS ---
Vital Signs 12/09/24 15:25 Height 5 ft 4 in Weight 189 lb BMI 32.4 BP 139/87 Blood Pressure Location Lt brachial Position Sitting Pulse 80 Pulse Source Pulse Oximeter Pulse Oximetry (%) 97 Oxygen Delivery Method Room Air Intake Visit Reasons: BILATERAL DIAGNOSTIC L3, L4, DRL5 MBB Intake Note: Pain today 8/10 Health Safety And Environment Manager Required: Yes Health Safety And Environment Manager Language: Production Shift Supervisor Services: Health Safety And Environment Manager Offered & Declined Health Safety And Environment Manager Name: Daughter Waldo Accompanied by: Daughter Allergies vancomycin [VANCOMYCIN] Allergy (Severe, Verified 12/09/24 15:26) ITCHINESS HPI Comments Details: Patient presents today to assess response to bilateral diagnostic L3-L4 DR L5 MBB on 12/02/[address] Burns. Patient reports 0% pain relief since procedure. She continues to endorse axial low back pain but also significant pain with flexing forward and bending which indicates a discogenic source. Her previous lumbar spine MRI revealed mild disc bulges at L4-L5 and L5-S1 without neuroforaminal or central spine narrowing at any level. She previously had good pain relief with left SI joint injection last year and reports no concerns for SI joint pain today. She continues to take methocarbamol, heat therapy and activity modifications with partial relief. Pain is rated at 8/10. Denies any recent cough, cold, infection, fever or any significant changes in medical history since last office visit. Past Procedures: 12/02/24: Bilateral Diagnostic L3-L4 DR L5 MBB-0% pain relief 07/01/24: Left Therapeutic SIJ injection-100% ongoing pain relief PRIOR: Patient is a 49 years old Albanian speaking female with sclerosis (onset 2006), depression, migraine headaches, presents today for initial evaluation of low back pain. Denies any inciting events, trauma, injury, or falls. Patient reports remote history of injections and physical therapy at [facility]. Back pain is axial in also radiates into left buttock and left lateral hip consistent this left sacroiliac joint pain and piriformis syndrome. She recently completed MRIs [facility] which showed mild disc bulges at L4-L5 and L5-S1, no spinal canal or neural foraminal narrowing at any level. Pain is constant in most severe in the mornings and the middle of the night which she rates 8/10. Pain affects her general activities, sleep, mobility, mood, social activities and quality of life. Denies any fever, chills, abdominal or groin pain, bladder or bowel dysfunction or saddle anesthesia. [facility] Location: Upper back radiates to lower back and left buttock Duration: 5+ years Characteristics of symptom or complaint: Aching, stabbing, sharp, tingling, shooting, throbbing, tiring Aggravating or associated factors: Movements, walking, prolonged standing or sitting, changing positions Relieving factors: Rest, modifying activities, lorazepam, duloxetine, oral steroids Treatment: PT, Injections, MRIs, tried and stopped baclofen and Lyrica [facility] Medical History Depression Multiple sclerosis Asthma Surgical History S/P cholecystectomy H/O: hysterectomy Social History Patient Tobacco Use Status: Never used Tobacco Review of Systems Const All systems reviewed & are unremarkable except as noted in HPI and below Physical Exam Vital Signs: Last Vital Signs Pulse 80 12/09/24 15:25 BP 139/87 12/09/24 15:25 Pulse Ox 97 12/09/24 15:25 Oxygen Delivery Method Room Air 12/09/24 15:25 BMI result Body Mass Index 32.4 General: Appears afebrile. Alert and oriented. Mood and affect appropriate. Follows and participates in conversation appropriately. Respiratory effort is unlabored. No cough. Able to transition from sit to stand unassisted. Ambulates with bilaterally normal heel strike and toe off, reports left side weakness with MS General: Yes no CVA tenderness Back/Spine/Pelvis Other: Patient is able to walk and stand on heels and tip toes with mild difficulty on the left otherwise demonstrating good motor tone. No limping. Non-antalgic, wide base gait. Lumbar extension and flexion forward with bending reproduces moderate to severe pain. Demonstrates 5/5 right and 4/5 left strength of quadriceps bilaterally as well as flexion/dorsiflexion of bilateral feet against resistance. 2+ pedal pulses bilaterally. Straight leg rise with dorsiflexion negative bilaterally. +2 patellar and achilles reflexes bilaterally. Facet loading test positive bilaterally. Rebecca sign negative bilaterally. Back: no CVA tenderness Cervical Spine: cervical ROM normal, cervical muscular tenderness and No Cervical spine tenderness Thoracic/Lumbar Spine: thoracic and lumbar spine normal to inspection, No Thoracic/lumbar spine scar(s), Lasegue's sign negative, straight leg raise negative bilaterally, pain with thoraco-lumbar ROM, paraspinal muscle tenderness, thoraco-lumbar ROM limited, No thoracic spinal tenderness and lumbar spinal tenderness (L4-S1) Pelvis: no buttock tenderness Sacroiliac joints: bilaterally nontender Extrem General: Yes capillary refill normal, Yes no clubbing, cyanosis or edema and Yes no calf tenderness Results Reviewed Results Reviewed: XR HIP 1 VIEW LEFT WITH PELVIS 08/04/24 CLINICAL INFORMATION: , M25.552 - Pain in left hip FINDINGS: There is no evidence of acute fracture or dislocation. There are mild degenerative arthritic changes of the hip evident by sclerotic changes of the acetabular roof and narrowing of the joint space. Mild degenerative changes of the SI joints. Adjacent pubic rami are intact. Surrounding soft tissues are unremarkable. 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 Assessment & Plan Assessment & Plan (1) Lumbar degenerative disc disease: Code(s): M51.36 - Other intervertebral disc degeneration, lumbar region Category: Medical (2) Low back pain: Code(s): M54.50 - Low back pain, unspecified Category: Medical (3) Lumbar spondylosis: Code(s): M47.816 - Spondylosis without myelopathy or radiculopathy, lumbar region Category: Medical (4) Sacroiliac joint pain: Code(s): M53.3 - Sacrococcygeal disorders, not elsewhere classified Category: Medical Plan Patient is one week status post Bilateral Diagnostic L3-L4 DR L5 MBB injections with no pain relief for axial low back pain. Given patient's response, axial low back pain is not her main pain generator for her constant daily pain with ADLs, mobility, sleep and sleep. We will update lumbar spine xray and assess for instability. Her previous lumbar spine MRI revealed mild disc bulges at L4-L5 and L5-S1 without neuroforaminal or central spine narrowing at any level. Scripts provided for tramadol for moderate-severe pain and Narcan. Side effects and precautions were discussed with patient and her family. All questions were answered and the patient is in agreement of plan. Follow-up for xray results and sooner as needed. Orders: Orders XR lumbar spine 6V w bending Today M47.816 - Spondylosis without myelopathy or radiculopathy, lumbar region, M51.36 - Other intervertebral disc degeneration, lumbar region, M54.50 - Low back pain, unspecified Medications: New tramadol 50 mg PO Q8H 10 days PRN 30 tabs 0RF pain (scale score 7-10) M47.816 - Spondylosis without myelopathy or radiculopathy, lumbar region, M51.36 - Other intervertebral disc degeneration, lumbar region, M54.50 - Low back pain, unspecified naloxone 4 mg/actuation (Narcan) spray 1 dose into ONE nostril; alternate nostrils w each dose until help arrives 4 mg intranasal Q2M PRN 2 ea 0RF opioid overdose Coding Level of Care Code Est Pt Level 4 (15354) Complex EM visit Add On G2211 Diagnoses Lumbar degenerative disc disease M51.36 Low back pain M54.50 Lumbar spondylosis M47.816 Sacroiliac joint pain M53.3
[2024-12-09 15:25] VITALS: BP 139/87; PULSE 80; O2SAT 97; BMI 32.4
--- OUTSIDE RECORDS SUMMARY | 2024-12-09 18:32 | XMS_ITS | Clinical Summary ---
Author Organization [facility] Address [address] [place] [address] Care Team Providers Care Supervisor Veneer Name Role Phone Nell Chatterjee MD Primary Care Provider [phone] Allergies Active Allergy Reactions Criticality Noted Date [...] 5 07/11/2022 Active ergocalciferol (VITAMIN D2) capsule 45952 units Take 1 capsule (50,000 Units total) [...] age to complete this topic Care Teams Supervisor Veneer Relationship Specialty Start Date End Date Nell Chatterjee MD [address] [facility] [address] [place] [phone] PCP - General Internal Medicine 03/22/23
--- OUTSIDE RECORDS SUMMARY | 2024-12-09 18:32 | XMS_ITS | Encounter Summary ---
Author Organization [facility] Address [address] [place] [address] Care Team Providers Care Functional Consultant Name Role Phone Nell Chatterjee MD Primary Care Provider Reason for Visit * Reason Onset Date Comments OCREVUS AUTH RQST 12/05/2024 AUTH NOT REQRD 12/08/2024 Encounter Details Date Type Department Care Team (Late st Contact Info) Description 12/05/2024 Telephone [facility] [place] [address] [phone] Bo Benites MD [address] [facility] [address] [place] [phone] OCREVUS AUTH RQST; AUTH NOT REQRD Social History Tobacco Use Types Packs/Day Years Used Date Smoking Tobacco: Never Smokeless Tobacco: Never Comments Unknown Sex and Gender Information Value Date Recorded Sex Assigned at Not on file Legal Sex Female 10:48 PM EST Gender Identity Not on file Sexual Orientation Not on file documented as of this encounter Progress Notes * Deborah Cerrato - 12/08/2024 7:59 AM EDT Per Mika- auth not reqrd for [id number]; covered under medical benefits without a P.A. (autofax #[phone]). * Deborah Cerrato - 12/05/2024 1:17 PM EST Ocrevus auth rqst forms [facility] documented in this encounter Plan of Treatment Upcoming Encounters Date Type Department Care Team (Late st Contact Info) Description 01/13/2025 8:00 AM EDT Appointment [facility] - [place] [address] [place] [phone] 01/13/2025 8:00 AM EDT Office Visit [facility] [place] [address] [facility] [address] [place] [phone] Bo Benites MD [address] [place] [phone] documented as of this encounter Visit Diagnoses Not on filedocumented in this encounter Care Teams Functional Consultant Relationship Specialty Start Date End Date Nell Chatterjee MD [address] [place] [address] [place] [address] PCP - General 03/22/23 documented as of this encounter
--- OUTSIDE RECORDS SUMMARY | 2024-12-09 18:32 | XMS_ITS | Clinical Summary ---
Author Organization [facility] [place] [address] Phone Care Team Providers Care Skid Man Name Role Phone Nell Chatterjee MD Primary Care Provider [phone] Allergies Active Allergy Reactions Criticality Noted Date [...] Encounters Date Type Department Care Team Description 12/05/2024 Telephone [facility] 175 [facility] [address] [place] [address] Bo Benites MD OCREVUS AUTH RQST; AUTH NOT REQRD 09/26/2024 11:00 AM EST Office Visit [facility] 175 [facility] [address] [place] [address] Christina Martinez PA Chronic migraine without aura without status migrainosus, not intractable (Primary Dx) from Last 3 Months Medical History Medical History Date Comments MS (multiple sclerosis) ([facility]) DX:MS (multiple sclerosis) ([facility]) Family History Medical History Relation Name Comments [...] Info) Description 01/13/2025 8:00 AM EDT Appointment [facility] [place] [address] [place] [phone] 01/13/2025 8:00 AM EDT Office Visit [facility] [place] [address] [place] [phone] Bo Benites MD [address] [place] [address] Health Maintenance Due Date Last Done [...] patient's age to complete this topic Insurance [employer] Advance Directives Documents on File Type Date Recorded Patient Boat Person Expl 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
--- OUTSIDE RECORDS SUMMARY | 2024-12-09 18:32 | XMS_ITS | Encounter Summary ---
Author Organization [facility] Address [address] [place] [address] Care Team Providers Care Lens Assistant Name Role Phone Nell Chatterjee MD Primary Care Provider [phone] Encounter Details Date Type Department Care Team [...] Info) Description 01/13/2025 8:00 AM EDT Appointment [facility] - [place] [address] [facility] [address] [place] [phone] 01/13/2025 8:00 AM EDT Office Visit [facility] [place] 175 [facility] [address] [place] [phone] Bo Benites MD [address] [phone] documented as of this encounter Visit Diagnoses Not on filedocumented in this encounter Care Teams Lens Assistant Relationship Specialty Start Date End Date Nell Chatterjee MD [address] [place] [address] [place] [address] PCP - General 03/22/23 documented as of this encounter
== END 2024-12-09 15:38 | disposition home or self-care (01) ==
PROVIDERS: PCP Family Medicine; Visit Provider Nurse Practitioner Family
DX: M51.369 Other intervertebral disc degeneration, lumbar region without mention of lumbar back pain or lower extremity pain (principal); M54.50 Low back pain, unspecified; M47.816 Spondylosis without myelopathy or radiculopathy, lumbar region; M53.3 Sacrococcygeal disorders, not elsewhere classified
CPT/HCPCS: 99214; G2211

== ENCOUNTER 2024-12-09 15:18 | Outpatient (REF) | payer OTHER, SELFPAY | END 2024-12-09 15:19 | disposition home or self-care (01) | LOC: HO.XRAY 15:18 | PROVIDERS: PCP Family Medicine; Visit Provider Nurse Practitioner Family | DX: M51.360 Other intervertebral disc degeneration, lumbar region with discogenic back pain only (principal); M47.816 Spondylosis without myelopathy or radiculopathy, lumbar region; M53.3 Sacrococcygeal disorders, not elsewhere classified | CPT/HCPCS: 99212 ==

== ENCOUNTER 2024-12-10 12:59 | Outpatient (REF) | payer OTHER, SELFPAY ==
--- NOTE | ~2024-12-10 | XR_ITS ---
CLINICAL HISTORY: M51.36 - Other intervertebral disc degeneration, lumbar region 7 views lumbar spine Comparison: None Findings: Normal alignment. No acute fractures or dislocation. No significant degenerative change. IMPRESSION: No acute findings. This document has been electronically signed by: Gael Rodriguez MD on 12/11/2024 12:29:31
--- OUTSIDE RECORDS SUMMARY | 2024-12-10 15:05 | XMS_ITS | Clinical Summary ---
Author Organization [facility] Address [address] [place] [address] Care Team Providers Care Tool Pusher Name Role Phone Nell Chatterjee MD Primary Care Provider [phone] Allergies Active Allergy Reactions Criticality Noted Date [...] 5 07/11/2022 Active ergocalciferol (VITAMIN D2) capsule 33861 units Take 1 capsule (50,000 Units total) [...] age to complete this topic Care Teams Tool Pusher Relationship Specialty Start Date End Date Nell Chatterjee MD [address] [facility] [address] [place] [phone] PCP - General Internal Medicine 03/22/23
--- OUTSIDE RECORDS SUMMARY | 2024-12-10 15:05 | XMS_ITS | Encounter Summary ---
Author Organization [facility] Address [address] [place] [address] Care Team Providers Care Gear Repair Supervisor Name Role Phone Nell Chatterjee MD Primary Care Provider [phone] Reason for Visit * Reason Onset Date Comments OCREVUS AUTH RQST 12/05/2024 AUTH NOT REQRD 12/08/2024 Encounter Details Date Type Department Care Team (Late st Contact Info) Description 12/05/2024 Telephone [facility] - [place] [address] [phone] Bo Benites MD 175 [facility] [address] [place] [phone] OCREVUS AUTH RQST; AUTH NOT REQRD Social [...] under medical benefits without a P.A. (autofax #[phone]). * Deborah Cerrato - 12/05/2024 1:17 PM EST Ocrevus auth rqst forms [facility] documented in this encounter Plan of Treatment Upcoming Encounters Date Type Department Care Team (Late st Contact Info) Description 01/13/2025 8:00 AM EDT Appointment [facility] - [place] [address] [place] [phone] 01/13/2025 8:00 AM EDT Office Visit [facility] [place] [address] [facility] [facility] [address] [facility] [address] [place] [phone] Bo Benites MD [address] [facility] [facility] [address] [place] [phone] documented as of this encounter Visit Diagnoses Not on filedocumented in this encounter Care Teams Gear Repair Supervisor Relationship Specialty Start Date End Date Nell Chatterjee MD [address] [place] [address] [place] [address] PCP - General 03/22/23 documented as of this encounter
--- OUTSIDE RECORDS SUMMARY | 2024-12-10 15:05 | XMS_ITS | Clinical Summary ---
Author Organization [facility] [place] [address] Phone Care Team Providers Care Director Of Intelligence Name Role Phone Nell Chatterjee MD Primary Care Provider [phone] Allergies Active Allergy Reactions Criticality Noted Date [...] Type Department Care Team Description 12/05/2024 Telephone [facility] [address] [facility] [address] [place] [address] Bo Benites MD OCREVUS AUTH RQST; AUTH NOT REQRD 09/26/2024 11:00 AM EST Office Visit [facility] 175 [facility] [address] [place] [address] Christina Martinez PA Chronic migraine without aura without status migrainosus, not intractable (Primary Dx) from Last 3 Months Medical History Medical History Date Comments MS (multiple sclerosis) ([facility]) DX:MS (multiple sclerosis) ([facility]) Family History Medical History Relation Name [...] [facility] [place] [address] [place] [phone] 01/13/2025 8:00 AM EDT Office Visit [facility] [place] [address] [place] [phone] Bo Benites MD [address] [place] [address] Health Maintenance Due Date Last [...] patient's age to complete this topic Insurance [facility] Advance Directives Documents on File Type Date Recorded Patient Associate Professor Of History Expl anation Health Care Decision (hx) 10/18/2018 [...] (hx) 04/30/2013 AD OSEGUERA DIRECTIVE Care Teams Director Of Intelligence Relationship Specialty Start Date End Date Nell Chatterjee MD [address] [place] [address] Dr Moon, [place] [address] PCP - General 03/22/23
--- OUTSIDE RECORDS SUMMARY | 2024-12-10 15:05 | XMS_ITS | Encounter Summary ---
Author Organization [facility] Address [address] [place] [address] Care Team Providers Care Pulp And Paper Tester Name Role Phone Nell Chatterjee MD Primary Care Provider [phone] Encounter Details Date Type Department Care Team [...] Info) Description 01/13/2025 8:00 AM EDT Appointment [facility] - [place] [address] [facility] [address] [facility] [address] [place] [phone] 01/13/2025 8:00 AM EDT Office Visit [facility] [place] 175 [facility] [address] [place] [phone] Bo Benites MD [address] [address] documented as of this encounter Visit Diagnoses Not on filedocumented in this encounter Care Teams Pulp And Paper Tester Relationship Specialty Start Date End Date Nell Chatterjee MD [address] [place] [address] [place] [address] PCP - General 03/22/23 documented as of this encounter
== END 2024-12-10 13:00 | disposition home or self-care (01) ==
LOC: HO.XRAY 12:59
PROVIDERS: PCP Nurse Practitioner Family; Visit Provider Nurse Practitioner Family
DX: M47.816 Spondylosis without myelopathy or radiculopathy, lumbar region (principal); M54.50 Low back pain, unspecified; M51.369 Other intervertebral disc degeneration, lumbar region without mention of lumbar back pain or lower extremity pain
CPT/HCPCS: 72114

== ENCOUNTER → 2024-12-10 13:03 | Outpatient (BNV) | payer OTHER, SELFPAY | PROVIDERS: PCP Nurse Practitioner Family; Visit Provider Radiology Diagnostic Radiology | DX: M51.369 Other intervertebral disc degeneration, lumbar region without mention of lumbar back pain or lower extremity pain (principal) | CPT/HCPCS: 72114 ==

== ENCOUNTER 2025-01-23 14:59 | Outpatient (AMB) | payer OTHER, SELFPAY ==
--- NOTE | 2025-01-23 15:06 | MHC.OFFVIS ---
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 She responded well to previous left therapeutic SI joint injection but no pain relief with diagnostic lumbar medial branch blocks. Her recent lumbar xray showed no significant degenerative changes. However, the discomfort has recently resurfaced, worsening upon extended sitting, changing positions or walking. She also has mild osteoarthritis in both hips and sacroiliac joints. The patient reports associated tightness and tension involving left groin pain with external hip rotations. Denies any recent cough, cold, infection, fever or any significant changes in medical history since last office visit. - Onset and Timing: Intermittent, worsening upon prolonged sitting. - Quality and Character: Persistent, tight, and tension-related. - Primary Location: Left buttock, left hip into left groin - Areas of Radiation: None reported beyond primary location. - Exacerbating Factors: Sitting for long durations, changing positions, walking - Relieving Factors: Previous sacroiliac joint injection provided good relief. - Interference with Functions: Affects the ability to sit comfortably for long periods. - Affect: No mood disturbances noted, though pain affects sitting tolerance. - Analgesia: Previous steroid injections attempted; left SIJ injection gave 100% relief. - Adverse Effects: None reported from previous treatments. - Activities of Daily Living: Difficulty with prolonged sitting. - Aberrant Drug Related Behaviors: None reported. Past Procedures: 12/02/24: Bilateral Diagnostic L3-L4 DR L5 MBB-0% pain relief 07/01/24: Left Therapeutic SIJ injection-100% ongoing pain relief PRIOR: Patient is a 49 years old Maldivian speaking female with sclerosis (onset 2006), depression, migraine headaches, presents today for initial evaluation of low back pain. Denies any inciting events, trauma, injury, or falls. Patient reports remote history of injections and physical therapy at [facility]. Back pain is axial in also radiates into left buttock and left lateral hip consistent this left sacroiliac joint pain and piriformis syndrome. She recently completed MRIs [facility] which showed mild disc bulges at L4-L5 and L5-S1, no spinal canal or neural foraminal narrowing at any level. Pain is constant in most severe in the mornings and the middle of the night which she rates 8/10. Pain affects her general activities, sleep, mobility, mood, social activities and quality of life. Denies any fever, chills, abdominal or groin pain, bladder or bowel dysfunction or saddle anesthesia. [facility] Location: Upper back radiates to lower back and left buttock Duration: 5+ years Characteristics of symptom or complaint: Aching, stabbing, sharp, tingling, shooting, throbbing, tiring Aggravating or associated factors: Movements, walking, prolonged standing or sitting, changing positions Relieving factors: Rest, modifying activities, lorazepam, duloxetine, oral steroids Treatment: PT, Injections, MRIs, tried and stopped baclofen and Lyrica [facility] Medical History Depression Multiple sclerosis Asthma Surgical History S/P cholecystectomy H/O: hysterectomy Social History Patient Tobacco Use Status: Never used Tobacco Review of Systems Const All systems reviewed & are unremarkable except as noted in HPI and below Physical Exam Vital Signs: Last Vital Signs Pulse 87 01/23/25 15:09 BP 120/77 01/23/25 15:09 Pulse Ox 100 01/23/25 15:09 Oxygen Delivery Method Room Air 01/23/25 15:09 BMI result Body Mass Index 32.0 General: Appears afebrile. Alert and oriented. Mood and affect appropriate. Follows and participates in conversation appropriately. Respiratory effort is unlabored. No cough. Able to transition from sit to stand unassisted. Ambulates with bilaterally normal heel strike and toe off, reports left side weakness with MS General: Yes no CVA tenderness Back/Spine/Pelvis Other: Limited lumbar ROM due to pain. Non-antalgic, wide base gait. Lumbar extension and flexion forward with bending reproduces moderate pain. Demonstrates 5/5 right and 4/5 left due to pain strength of quadriceps bilaterally as well as flexion/dorsiflexion of bilateral feet against resistance. 2+ pedal pulses bilaterally. Straight leg rise with dorsiflexion negative bilaterally. +2 patellar and achilles reflexes bilaterally. Facet loading test positive bilaterally. VENUS test reproduces left lateral hip with moderate groin and mild left lower back pain. +Howard?s, Stinchfield, Pelvic Compression and Gaenslen?s test positive on the left. Left groin with external>internal hip rotations. Back: no CVA tenderness Cervical Spine: cervical ROM normal and No Cervical spine tenderness Thoracic/Lumbar Spine: thoracic and lumbar spine normal to inspection, No Thoracic/lumbar spine scar(s), Lasegue's sign negative, straight leg raise negative bilaterally, pain with thoraco-lumbar ROM, paraspinal muscle tenderness, thoraco-lumbar ROM limited, No thoracic spinal tenderness and lumbar spinal tenderness (L4-S1) Pelvis: buttock tenderness on the left Sacroiliac joints: bilaterally tender to palpation (left>right) Extrem General: Yes capillary refill normal, Yes no clubbing, cyanosis or edema and Yes no calf tenderness Results Reviewed Results Reviewed: XR HIP 1 VIEW LEFT WITH PELVIS 08/04/24 CLINICAL INFORMATION: , M25.552 - Pain in left hip FINDINGS: There is no evidence of acute fracture or dislocation. There are mild degenerative arthritic changes of the hip evident by sclerotic changes of the acetabular roof and narrowing of the joint space. Mild degenerative changes of the SI joints. Adjacent pubic rami are intact. Surrounding soft tissues are unremarkable. 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 XR lumbar spine 6V w bending 12/11/24 7 views lumbar spine Comparison: None Findings: Normal alignment. No acute fractures or dislocation. No significant degenerative change. IMPRESSION: No acute findings. Assessment & Plan Assessment & Plan (1) Sacroiliac joint pain: Code(s): M53.3 - Sacrococcygeal disorders, not elsewhere classified Category: Medical (2) Low back pain: Code(s): M54.50 - Low back pain, unspecified Category: Medical (3) Left hip pain: Code(s): M25.552 - Pain in left hip Category: Medical (4) Osteoarthritis of left hip: Code(s): M16.12 - Unilateral primary osteoarthritis, left hip Category: Medical Plan We will administer a left hip intra-articular steroid injection with local and fluoroscopy guidance as next steps addressing patient's primary concern today, leveraging past positive outcomes with similar interventions. This approach aims to mitigate the mild osteoarthritis impact, emphasizing sustained relief. Evaluations might extend to revisiting sacroiliac joint injections contingent upon current treatment efficacy. Expectations, risks and benefits were reviewed. Patient is aware she will be contacted to schedule this procedure. Lumbar spine xray results were reviewed today with patient and family and showed no significant degenerative changes. All questions and concerns have been answered and patient agreed with the plan. Follow up after hip injection and sooner as needed. Patient was informed and verbally consented to the use of an ambient scribe for clinic note documentation during this visit. Coding Level of Care Code Est Pt Level 4 (67478) Complex EM visit Add On G2211 Diagnoses Sacroiliac joint pain M53.3 Low back pain M54.50 Left hip pain M25.552 Osteoarthritis of left hip M16.12
[2025-01-23 15:09] VITALS: BP 120/77; PULSE 87; O2SAT 100; BMI 32.0
--- OUTSIDE RECORDS SUMMARY | 2025-01-23 15:40 | XMS_ITS | Encounter Summary ---
Author Organization [facility] Address [address] [place] [address] Care Team Providers Care Print Shop Assistant Name Role Phone Nell Chatterjee MD Primary Care Provider [phone] Encounter Details Date Type Department Care Team (Late st Contact Info) Description 07/15/2024 8:29 AM EDT Hospital Encounter TH HISTORIC ENCOUNTERS [facility] CONVERSION ONLY Social History Tobacco Use Types Packs/Day Years Used Date Smoking Tobacco: Never Smokeless Tobacco: Never Alcohol Use Standard Drinks/Week Comments Not Currently 0 (1 standard drink = 0.6 oz pur e alcohol) Interpersonal Safety Answer Date Record ed Physical Abuse 12/11/2024 Verbal Abuse 12/11/2024 Comments Unknown Sex and Gender Information Value [...] Care Team (Late st Contact Info) Description 03/16/2025 11:00 AM EDT Office Visit [address] [place] [address] Christina Martinez, HARMONY [facility] [address] [place] [address] 07/14/2025 8:00 AM EDT Appointment [facility] [place] [address] [phone] documented as of this encounter Visit Diagnoses Not on filedocumented in this encounter Care Teams Print Shop Assistant Relationship Specialty Start Date End Date Nell Chatterjee MD [address] [place] [address] [place] [address] PCP - General 03/22/23 documented as of this encounter
--- OUTSIDE RECORDS SUMMARY | 2025-01-23 15:40 | XMS_ITS | Clinical Summary ---
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 05/09/20 21 Active montelukast (SINGULAIR) 10 mg tablet Take 1 tablet (10 mg total) by mouth 1 (one) time each day. 10/12/19 21 Active cholecalcifero l (VITAMIN D-3) 50 mcg (2,000 unit) capsule 1 po qd 30 capsule 5 09/16/20 24 Active Qulipta 60 mg tablet Take 1 tablet by mouth 1 (one) time each day. 11/24/19 25 Active LORazepam (ATIVAN) 1 mg tablet Take 1 tablet (1 mg total) by mouth at bedtime as needed for sleep. 11/05/19 25 Active traMADoL (ULTRAM) 50 mg tablet Take 1 tablet (50 mg total) by mouth at bedtime. 12/10/19 25 Active FLUoxetine (PROzac) 40 mg capsule Take 1 capsule (40 mg total) by mouth 1 (one) time each day. Active ergocalciferol (VITAMIN D-2) 1,250 mcg (50,000 unit) capsule Take 1 capsule (50,000 Units total) by mouth 1 (one) time per week. SUNDAY 4 capsule 2 12/14/19 25 025 Active SUMAtriptan (IMITREX) 50 mg tablet Take 1 tablet (50 mg total) by mouth 1 (one) time if needed for migraine (may repeat x1) for up to 1 dose. May repeat dose once in 2 hours if no relief. Do not exceed 2 doses in 24 hours. 9 tablet 5 01/14/20 25 Active baclofen (LIORESAL) 10 mg tablet Take 1 tablet (10 mg total) by mouth 3 (three) times a day. 90 each 01/14/20 25 025 Active verapamiL (CALAN) 40 mg tablet TAKE 1 TABLET BY MOUTH 1 TIME EACH DAY FOR 14 DAYS. 14 tablet 01/15/20 25 Active methocarbamoL (ROBAXIN) 500 mg tablet Take 1 tablet (500 mg total) by mouth 2 (two) times a day if needed for muscle spasms. 11/24/19 25 025 Discontinued verapamil SR (CALAN-SR) 120 mg CR tablet Take 1 tablet (120 mg total) by mouth 1 (one) time each day. Do not crush or chew. 025 Discontinued verapamiL (CALAN) 40 mg tablet Take 1 tablet (40 mg total) by mouth 1 (one) time each day for 14 days. 14 tablet 01/14/20 25 025 Discontinued Active Problems Problem Noted Date Diagnosed Date Bipolar disorder, unspecified ([facility] V24, [facility] V28) 03/08/2024 Multiple sclerosis ([facility] V24, [facility] V28) Depression 10/14/2020 Intramural leiomyoma of uterus 02/12/2007 Papanicolaou smear of cervix with low grade squamous intraepithelial lesion (LGSIL) 02/12/2007 Resolved Problems Problem Noted Date Diagnosed Date Resolved Date Transient neurological symptoms 12/11/2024 12/13/2024 Encounters Date Type Department Care Team Description 01/13/2025 8:00 AM EDT Office Visit [facility] [place] [address] [place] [address] Bo Benites MD Chronic migraine without aura without status migrainosus, not intractable (Primary Dx); Multiple sclerosis ([facility] V24, [facility] V28); High risk medication use; Spasticity 01/13/2025 7:45 AM EDT - 01/13/2025 11:59 PM EDT Hospital Encounter [facility] Out[facility] Re[facility] [address] [phone] Multiple sclerosis ([facility] V24, [facility] V28) (Primary Dx) Discharge Disposition: Home or Self Care 12/11/2024 10:40 AM EDT - 12/13/2024 12:05 PM EDT Hospital Encounter [facility] [address] [place] [phone] Simba Cervantes MD Bell, Alistair A, MD Multiple sclerosis exacerbation ([facility] V24, [facility] V28) (Primary Dx) Discharge Disposition: Home or Self Care 12/05/2024 Telephone [facility] [place] Out[facility] [address] [phone] Bo Benites MD OCREVUS AUTH RQST; AUTH NOT REQRD from Last 3 Months Surgical History Surgery Date Site/Laterality Comments CHOLECYSTECTOMY Medical History Medical History Date Comments MS (multiple sclerosis) ([facility] V24, [facility] V28) DX:MS (multiple sclerosis) ( [facility]) Family History Medical History Relation Name Comments Multiple sclerosis Brother Relation Name Status Comments Brother Social History Tobacco Use Types Packs/Day Years Used Date Smoking Tobacco: Never Smokeless Tobacco: Never Tobacco Cessation:Counseling Given: Not Answered Alcohol Use Standard Drinks/Week Comments Not Currently [...] Sign Reading Time Taken Comments Blood Pressure 125/88 01/13/2025 11:44 AM EDT Pulse 76 01/13/2025 11:44 AM EDT Temperature 36.2 ??C (97.1 ??F) 01/13/2025 11:44 AM E DT Respiratory Rate 16 01/13/2025 11:44 AM EDT Oxygen Saturation 94% 01/13/2025 11:44 AM EDT Inhaled Oxygen Concentration - - Weight 85.7 kg (189 lb) 12/11/2024 9:39 AM EDT Height 162.6 cm (5' 4 ) 12/11/2024 9:39 AM EDT Body Mass Index 32.44 12/11/2024 9:39 AM EDT Plan of Treatment Upcoming Encounters Date Type Department Care Team (Late st Contact Info) Description 03/16/2025 11:00 AM EDT Office Visit [facility] [place] [address] [facility] [address] [place] [phone] Christina Martinez PA 175 [facility] [address] [place] [address] 07/14/2025 8:00 AM EDT Appointment [facility] - [place] [address] [place] [phone] Health Maintenance Due Date Last Done Comments [...] 07/08/2021, 06/04/2013 Pneumococcal Vaccine: 50+ Years Completed 07/19/2023, 06/07/2016 Pneumococcal Vaccine: Pediatrics (0 to 5 Years) and At-Risk Patients (6 to 64 Years) Completed 07/19/2023, 06/07/2016 COVID-19 Vaccine Completed 07/04/2024, , 08/18/2022, Additional [...] age to complete this topic Meningococcal B Vaccine Aged Out No l onger eligible based on patient's age to complete this topic RSV Immunization Patients Under 20 months Aged Out No longer eligible based on patient's age to complete this topic Varicella Vaccines Aged Out No longer eligible based on patient's age to complete this topic Procedures Procedure Name Priority Date/Time Associated Diagnosis Comments ECG ANNOTATED 12/15/2024 VITAMIN D 25 HYDROXY Add-On 12/12/2024 6:05 AM EDT CBC WITH AUTO DIFFERENTIAL Routine 12/12/2024 6:05 AM EDT CBC AND DIFFERENTIAL Routine 12/12/2024 6:05 AM EDT MAGNESIUM Routine 12/12/2024 6:05 AM EDT BASIC METABOLIC PANEL Routine 12/12/2024 6:05 AM EDT REAL URINE CULTURE TUBE Routine 12/12/19 11:59 PM EDT EXTRA TUBES Routine 12/11/2024 11:59 PM EDT REAL URINE CULTURE TUBE Routine 12/12/19 11:59 PM EDT EXTRA TUBES Routine 12/11/2024 11:59 PM EDT URINALYSIS WITH REFLEX MICROSCOPIC Routine 12/11/2024 11:59 PM EDT URINALYSIS WITH REFLEX MICROSCOPIC Routine 12/11/2024 11:59 PM EDT MR CERVICAL SPINE WO AND W CONTRAST Routine 12/11/2024 6:14 PM EDT MR BRAIN WO AND W CONTRAST Routine 12/11/2024 6:03 PM EDT POCT GLUCOSE BLOOD Routine 12/11/2024 11 :[address] HEAD WO CONTRAST STAT 12/11/2024 1 1:08 AM EDT ECG 12-LEAD STAT 12/11/2024 11:01 AM EDT XR CHEST 1 VIEW STAT 12/11/2024 10:54 AM EDT CBC WITH AUTO DIFFERENTIAL STAT 12/11/2024 10:03 AM EDT ACTIVATED PARTIAL THROMBOPLASTIN TIME STAT 12/11/2024 10:03 AM EDT PROTHROMBIN TIME WITH INR STAT 12/11/2024 10:03 AM EDT BASIC METABOLIC PANEL STAT 12/11/2024 10:03 AM EDT CBC AND DIFFERENTIAL STAT 12/11/2024 10:03 AM EDT from Last 3 Months Results * ECG-Annotated (12/15/2024) us Provider Onbase MD ECG ORDERABLES Final Result * (ABNORMAL) CBC auto differential (12/12/2024 6:05 AM EDT) Only the most recent of2 resultswithin the time period is included. WBC 10.8 4.8 - 10.8 K/[facility] LAB HEMETOLOGY METHOD 12/12/2024 6:38 AM [facility] RBC 3.80 3.80 - 4.80 M/mcL LAB HEMETOLOGY METHOD 12/12/2024 6:38 AM [facility] Hemoglobin 11.7 11.5 - 16.0 g/dL LAB HEMETOLOGY METHOD 12/12/2024 6:38 AM [facility] Hematocrit 37.4 35.0 - 47.0 % LAB HEMETOLOGY METHOD 12/12/2024 6:38 AM [facility] MCV 99.2(H) 79.0 - 98.0 FL LAB HEMETOLOGY METHOD 12/12/2024 6:38 AM [facility] MCH 31.0 27.0 - 32.0 pcg LAB HEMETOLOGY METHOD 12/12/2024 6:38 AM [facility] MCHC 31.3(L) 32.0 - 37.0 g/dL LAB HEMETOLOGY METHOD 12/12/2024 6:38 AM [facility] RDW 13.6 11.0 - 15.0 % LAB HEMETOLOGY METHOD 12/12/2024 6:38 AM [facility] Platelets 250 130 - 400 K/mcL LAB HEMETOLOGY METHOD 12/12/2024 6:38 AM [facility] MPV 11.5(H) 7.0 - 11.0 FL LAB HEMETOLOGY METHOD 12/12/2024 6:38 AM [facility] NRBC 0.0 <1.0 % LAB HEMETOLOGY METHOD 12/12/2024 6:38 AM [facility] NRBC Absolute 0.00 <0.10 K/mcL LAB HEMETOLOGY METHOD 12/12/2024 6:38 AM [facility] Neutrophils Relative 86.4 % LAB HEMETOLOGY METHOD 12/12/2024 6:38 AM [facility] Lymphocytes Relative 8.6 % LAB HEMETOLOGY METHOD 12/12/2024 6:38 AM [facility] Monocytes Relative 4.3 % LAB HEMETOLOGY METHOD 12/12/2024 6:38 AM [facility] Eosinophils Relative 0.1 % LAB HEMETOLOGY METHOD 12/12/2024 6:38 AM [facility] Basophils Relative 0.3 % LAB HEMETOLOGY METHOD 12/12/2024 6:38 AM [facility] Immature Granulocytes Relative 0.3 % LAB HEMETOLOGY METHOD 12/12/2024 6:38 AM [facility] Neutrophils Absolute 9.32(H) 1.50 - 7.00 K/mcL LAB HEMETOLOGY METHOD 12/12/2024 6:38 AM [facility] Lymphocytes Absolute 0.93(L) 1.00 - 5.00 K/mcL LAB HEMETOLOGY METHOD 12/12/2024 6:38 AM [facility] Monocytes Absolute 0.46 0.20 - 1.00 K/mcL LAB HEMETOLOGY METHOD 12/12/2024 6:38 AM [facility] Eosinophils Absolute 0.01 0.00 - 0.50 K/mcL LAB HEMETOLOGY METHOD 12/12/2024 6:38 AM [facility] Basophils Absolute 0.03 0.00 - 0.20 K/mcL LAB HEMETOLOGY METHOD 12/12/2024 6:38 AM [facility] Immature Granulocytes Absolute 0.03 0.00 - 0.03 K/mcL LAB HEMETOLOGY METHOD 12/12/2024 6:38 AM [facility] Blood Venous blood specimen / Unknown Venipuncture / Unknown 12/12/2024 6:05 AM EDT 12/12/2024 6:23 AM EDT Claudia ANTUNEZ LAB BLOOD ORDERABLES Final Re sult Performing Organization Address [facility] Co de Phone Number [facility] [address] [place] [address], [place] [phone] * (ABNORMAL) Vitamin D 25 hydroxy (12/12/2024 6:05 AM EDT) [facility] Vit D, 25-Hydroxy 26.9(L) 30.0 - 80.0 ng/mL LAB CHEMISTRY METHOD 12/12/2024 3:59 PM EDT [facility] Blood Venous blood specimen / Unknown Venipuncture / Unknown 12/12/2024 6:05 AM EDT 12/12/2024 6:23 AM EDT Lonnie Gutierrez MD LAB BLOOD ORDERABLES Final Re sult Performing Organization Address [facility] de Phone Number [facility] [address] [place] [address], [place] [phone] * Magnesium (12/12/2024 6:05 AM EDT) [facility] Magnesium 2.0 1.9 - 2.6 mg/dL LAB CHEMISTRY METHOD 12/12/2024 6:54 AM EDT [facility] Blood Venous blood specimen / Unknown Venipuncture / Unknown 12/12/2024 6:05 AM EDT 12/12/2024 6:23 AM EDT Claudia ANTUNEZ LAB BLOOD ORDERABLES Final Re sult Performing Organization Address [facility] Co de Phone Number [facility] [address] [place] [address], [place] [phone] * (ABNORMAL) Basic metabolic panel (12/12/2024 6:05 AM EDT) Only the most recent of2 resultswithin the time period is included. Sodium 138 133 - 145 mmol/L LAB CHEMISTRY METHOD 12/12/2024 6:57 AM [facility] Potassium 4.2 3.5 - 5.5 mmol/L LAB CHEMISTRY METHOD 12/12/2024 6:57 AM [facility] Chloride 106 96 - 110 mmol/L LAB CHEMISTRY METHOD 12/12/2024 6:57 AM [facility] CO2 30 21 - 32 mmol/L LAB CHEMISTRY METHOD 12/12/2024 6:57 AM [facility] Anion Gap 2(L) 3 - 11 LAB CHEMISTRY METHOD 12/12/2024 6:57 AM [facility] Glucose 109(H) 70 - 100 mg/dL LAB CHEMISTRY METHOD 12/12/2024 6:57 AM [facility] BUN 10 5 - 25 mg/dL LAB CHEMISTRY METHOD 12/12/2024 6:57 AM [facility] Creatinine 0.60 0.50 - 1.10 mg/dL LAB CHEMISTRY METHOD 12/12/2024 6:57 AM [facility] eGFR 109 >=60 mL/min/1. 73m2 LAB CHEMISTRY METHOD 12/12/2024 6:57 AM [facility] Comment:Calculation based on the??Chronic Kidney Disease Epidemiology Collaboration (CKD-EPI) equation refit??without adjustment for race. BUN/Creatinine Ratio 16.7 LAB CHEMISTRY METHOD 12/12/2024 6:57 AM [facility] Calcium 9.0 8.5 - 10.5 mg/dL LAB CHEMISTRY METHOD 12/12/2024 6:57 AM [facility] Blood Venous blood specimen / Unknown Venipuncture / Unknown 12/12/2024 6:05 AM EDT 12/12/2024 6:23 AM EDT us Claudia ANTUNEZ LAB BLOOD ORDERABLES Final Re sult [facility] [address] [place] [address], * (ABNORMAL) Urinalysis with reflex microscopic (12/11/2024 11:59 PM EDT) Specific [place] Urine 1.035(H) 1.003 - 1.030 LAB URINALYSIS - AUTOMATED METHOD 12/12/2024 12:39 AM [facility] pH, Urine 5.5 5.0 - 8.0 pH LAB URINALYSIS - AUTOMATED METHOD 12/12/2024 12:39 AM [facility] Leukocytes, Urine Negative Negative LAB URINALYSIS - AUTOMATED METHOD 12/12/2024 12:39 AM [facility] Nitrite, Urine Negative Negative LAB URINALYSIS - AUTOMATED METHOD 12/12/2024 12:39 AM [facility] Protein, Urine Negative <=Trace mg/dL LAB URINALYSIS - AUTOMATED METHOD 12/12/2024 12:39 AM [facility] Glucose, Urine Negative Negative mg/dL LAB URINALYSIS - AUTOMATED METHOD 12/12/2024 12:39 AM [facility] Ketones, Urine Negative Negative mg/dL LAB URINALYSIS - AUTOMATED METHOD 12/12/2024 12:39 AM [facility] Urobilinogen, Urine 0.2 0.2 - 1.0 mg/dL LAB URINALYSIS - AUTOMATED METHOD 12/12/2024 12:39 AM [facility] Bilirubin, Urine Negative Negative LAB URINALYSIS - AUTOMATED METHOD 12/12/2024 12:39 AM [facility] Blood, Urine Negative Negative LAB URINALYSIS - AUTOMATED METHOD 12/12/2024 12:39 AM [facility] Urine Urine specimen obtained by clean catch procedure / Unknown Non-blood Collection / Unknown 12/11/2024 11:59 PM EDT 12/12/2024 12:30 AM EDT us Simba Cervantes MD LAB URINE ORDERABLES Final Re sult Performing Organization Address [facility]/ZIP Co de Phone Number [facility] [address] [place] [address], [place] [phone] * Real urine culture tube (12/11/2024 11:59 PM EDT) Only the most recent of2 resultswithin the time period is included. Extra Tube Hold for add-ons. 12/12/2024 2:01 AM EDT [facility] Comment:Auto resulted. Urine Urine specimen obtained by clean catch procedure / Unknown Non-blood Collection / Unknown 12/11/2024 11:59 PM EDT 12/12/2024 12:36 AM EDT us Simba Cervantes MD LAB URINE ORDERABLES Final Re sult Performing Organization Address [facility] Co de Phone Number [facility] [address] [place] [address], [place] [phone] * MR Cervical Spine wo and w Contrast (12/11/2024 6:14 PM EDT) Anatomical Region Laterality Modality C-spine, Spine Magnetic Resonan ce 12/11/2024 6:50 PM EDT Impressions 12/11/2024 7:05 PM EDT No change in demyelinating lesion within the cord at C3-4. ??No new demyelinating lesions or abnormal enhancement to suggest active demyelination. -------- FINAL REPORT -------- Dictated By: SAWYER HAUSER Dictated Date: 12/11/2024 18:50 ET Assigned Physician: SAWYER HAUSER Reviewed and Electronically Signed By: SAWYER HAUSER Signed Date: 12/11/2024 19:05 ET Workstation ID: [id number] Transcribed By: Self Edit Transcribed Date: 12/11/2024 18:50 ET Narrative 12/11/2024 7:05 PM EDT PROCEDURE: Cervical spine MRI INDICATION: Multiple sclerosis TECHNIQUE: Multiplanar, multisequence MRI of the Cervical spine without and with contrast. ??17 mL Dotarem injected intravenously without complication COMPARISON: ??03/08/2024 FINDINGS: Cervical alignment is within normal limits. No fracture or suspicious marrow replacing lesion. Disc height and signal are preserved. ??Advanced right C4-5 facet arthritis. Cervical cord is similar in signal and morphology compared to prior with unchanged patchy T2 hyperintensity in the central cord at C3-4. ??No new cord signal abnormality. ??No abnormal enhancement within the spinal canal. ??No epidural collection or mass within the spinal canal. Paraspinal muscles are normal. Findings by level: C2-C3: No focal disc protrusion, foraminal stenosis, or spinal canal stenosis. C3-C4: No focal disc protrusion, foraminal stenosis, or spinal canal stenosis. C4-C5: No focal disc protrusion, foraminal stenosis, or spinal canal stenosis. C5-C6: No focal disc protrusion, foraminal stenosis, or spinal canal stenosis. C6-C7: No focal disc protrusion, foraminal stenosis, or spinal canal stenosis. C7-T1: No focal disc protrusion, foraminal stenosis, or spinal canal stenosis. Procedure Note Sawyer Hauser MD - 12/11/2024 PROCEDURE: Cervical spine MRI INDICATION: Multiple sclerosis TECHNIQUE: Multiplanar, multisequence MRI of the Cervical spine withoutand with contrast. 17 mL Dotarem injected intravenously withoutcomplication COMPARISON: 03/08/2024 FINDINGS: Cervical alignment is within normal limits. No fracture or suspicious marrow replacing lesion. Disc height and signal are preserved. Advanced right C4-5 facetarthritis. Cervical cord is similar in signal and morphology compared to prior withunchanged patchy T2 hyperintensity in the central cord at C3-4. No newcord signal abnormality. No abnormal enhancement within the spinal canal.No epidural collection or mass within the spinal canal. Paraspinal muscles are normal. Findings by level: C2-C3: No focal disc protrusion, foraminal stenosis, or spinal canalstenosis. C3-C4: No focal disc protrusion, foraminal stenosis, or spinal canalstenosis. C4-C5: No focal disc protrusion, foraminal stenosis, or spinal canalstenosis. C5-C6: No focal disc protrusion, foraminal stenosis, or spinal canalstenosis. C6-C7: No focal disc protrusion, foraminal stenosis, or spinal canalstenosis. C7-T1: No focal disc protrusion, foraminal stenosis, or spinal canalstenosis. IMPRESSION: No change in demyelinating lesion within the cord at C3-4. No newdemyelinating lesions or abnormal enhancement to suggest activedemyelination. -------- FINAL REPORT -------- Dictated By: SAWYER HAUSER Dictated Date: 12/11/2024 18:50 ET Assigned Physician: SAWYER HAUSER Reviewed and Electronically Signed By: SAWYER HAUSER Signed Date: 12/11/2024 19:05 ET Workstation ID: [id number] Transcribed By: Self Edit Transcribed Date: 12/11/2024 18:50 ET Claudia ANTUNEZ [facility] MRI PROCEDURES Final Resu lt * MR Brain wo and w Contrast (12/11/2024 6:03 PM EDT) Anatomical Region Laterality Modality Head and Neck Magnetic Resonan ce 12/11/2024 7:06 PM EDT Impressions 12/11/2024 7:16 PM EDT No change in multiple supratentorial demyelinating lesions. ??No new demyelinating lesions or abnormal enhancement to suggest active demyelination. -------- FINAL REPORT -------- Dictated By: SAWYER HAUSER Dictated Date: 12/11/2024 19:06 ET Assigned Physician: SAWYER HAUSER Reviewed and Electronically Signed By: SAWYER HAUSER Signed Date: 12/11/2024 19:16 ET Workstation ID: [id number] Transcribed By: Self Edit Transcribed Date: 12/11/2024 19:12 ET Narrative 12/11/2024 7:16 PM EDT PROCEDURE: Brain MRI INDICATION: Multiple sclerosis TECHNIQUE: Multiplanar, multisequence MRI of the brain without and with contrast. ??17 mL Dotarem injected intravenously from a 20 mL vial with the remainder discarded COMPARISON: ??03/08/2024 FINDINGS: No acute infarct, mass effect, or intracranial hemorrhage. Scattered T2 hyperintense foci throughout the supratentorial white matter are stable compared to prior. ??No new lesions. ??No abnormal intracranial enhancement. Sella and foramen magnum are within normal limits. ??No abnormal intracranial susceptibility artifact. Ventricles, sulci, and cisterns are normal in size and configuration. ??No hydrocephalus. Major intracranial arterial flow voids are within normal limits. Sinuses and mastoid air cells are clear. Bilateral lens implants. Extracranial soft tissues and calvarium are normal. Procedure Note Sawyer Hauser MD - 12/11/2024 PROCEDURE: Brain MRI INDICATION: Multiple sclerosis TECHNIQUE: Multiplanar, multisequence MRI of the brain without and withcontrast. 17 mL Dotarem injected intravenously from a 20 mL vial with theremainder discarded COMPARISON: 03/08/2024 FINDINGS: No acute infarct, mass effect, or intracranial hemorrhage. Scattered T2 hyperintense foci throughout the supratentorial white matterare stable compared to prior. No new lesions. No abnormal intracranialenhancement. Sella and foramen magnum are within normal limits. No abnormalintracranial susceptibility artifact. Ventricles, sulci, and cisterns are normal in size and configuration. Nohydrocephalus. Major intracranial arterial flow voids are within normal limits. Sinuses and mastoid air cells are clear. Bilateral lens implants. Extracranial soft tissues and calvarium are normal. IMPRESSION: No change in multiple supratentorial demyelinating lesions. No newdemyelinating lesions or abnormal enhancement to suggest activedemyelination. -------- FINAL REPORT -------- Dictated By: SAWYER HAUSER Dictated Date: 12/11/2024 19:06 ET Assigned Physician: SAWYER HAUSER Reviewed and Electronically Signed By: SAWYER HAUSER Signed Date: 12/11/2024 19:16 ET Workstation ID: [id number] Transcribed By: Self Edit Transcribed Date: 12/11/2024 19:12 ET Claudia ANTUNEZ IMG MRI PROCEDURES Final Resu lt * POCT Glucose, blood (12/11/2024 11:31 AM EDT) Glucose POCT 86 70 - 100 mg/dL 12/11/2024 11:31 AM EDT [facility] Blood Capillary blood specimen / Unknown 12/11/2024 11:31 AM EDT 12/11/2024 11:33 AM EDT us Generic Provider Poct LAB POINT OF CARE TEST DOCKED DEVICE UNSOLICITED RESULTS Final Result [facility] [address] [place] [address], [place] [phone] * CT Head wo Contrast (12/11/2024 11:08 AM EDT) Anatomical Region Laterality Modality Head and Neck Computed Tomogra phy 12/11/2024 11:1 6 AM EDT Impressions 12/11/2024 11:19 AM EDT No acute intracranial findings. -------- FINAL REPORT -------- Dictated By: Amol Zimmerman Dictated Date: 12/11/2024 11:16 ET Assigned Physician: Amol Zimmerman Reviewed and Electronically Signed By: Amol Zimmerman Signed Date: 12/11/2024 11:19 ET Workstation ID: [id number] Transcribed By: Self Edit Transcribed Date: 12/11/2024 11:16 ET Narrative 12/11/2024 11:19 AM EDT PROCEDURE: Noncontrast head CT. HISTORY: Headache, classic migraine hx MS. Left side paresthesias. COMPARISON: MRI of the brain dated 03/08/2024. TECHNIQUE: Noncontrast head CT with coronal and sagittal reformats. Dose length product: 809 mGy-cm. FINDINGS: BRAIN: The brain is partially obscured by streak artifact from the patient's earrings. ??No hemorrhage, edema, mass, or extra-axial fluid collection. ??No CT evidence of an acute large vessel infarct. ??Ventricles and sulci are age commensurate. ?? ORBITS: Lens implants. SINUSES/MASTOIDS: Right margareth bullosa. CALVARIUM: Mild hyperostosis frontalis interna. OTHER: The skull base soft tissues are normal. Procedure Note Amol Zimmerman MD - 12/11/2024 PROCEDURE: Noncontrast head CT. HISTORY: Headache, classic migraine hx MS. Left side paresthesias. COMPARISON: MRI of the brain dated 03/08/2024. TECHNIQUE: Noncontrast head CT with coronal and sagittal reformats. Dose length product: 809 mGy-cm. FINDINGS: BRAIN: The brain is partially obscured by streak artifact from thepatient's earrings. No hemorrhage, edema, mass, or extra-axial fluidcollection. No CT evidence of an acute large vessel infarct. Ventriclesand sulci are age commensurate. ORBITS: Lens implants. SINUSES/MASTOIDS: Right margareth bullosa. CALVARIUM: Mild hyperostosis frontalis interna. OTHER: The skull base soft tissues are normal. IMPRESSION: No acute intracranial findings. -------- FINAL REPORT -------- Dictated By: Amol Zimmerman Dictated Date: 12/11/2024 11:16 ET Assigned Physician: Amol Zimmerman Reviewed and Electronically Signed By: Amol Zimmerman Signed Date: 12/11/2024 11:19 ET Workstation ID: [id number] Transcribed By: Self Edit Transcribed Date: 12/11/2024 11:16 ET Liz ANTUNEZ IM CT PROCEDURES Final Result * ECG 12 lead (12/11/2024 11:01 AM EDT) Ventricular Rate ECG 79 BPM GEMUSE Atrial Rate 79 BPM GEMUSE P-R Interval 156 ms GEMUSE QRS Duration 86 ms GEMUSE Q-T Interval 380 ms GEMUSE QTc 435 ms GEMUSE P Wave Hanna 38 degrees GEMUSE R Hanna 29 degrees GEMUSE T Hanna 37 degrees GEMUSE ECG Interpretation Normal sinus rhythm Normal ECG When compared with ECG of 07-MAR-2024 20:02, No significant change was found Confirmed by MD Sidney, Meño ([id number]) on 12/11/2024 10:20:28 PM GEMUSE 12/11/2024 11:0 1 AM EDT 12/11/2024 10:20 PM EDT Liz ANTUNEZ ECG ORDERABLES Final Re sult GEMUSE * XR Chest 1 View (12/11/2024 10:54 AM EDT) Anatomical Region Laterality Modality Body Radiographic Lea ging 12/11/2024 11:2 8 AM EDT Impressions 12/11/2024 11:30 AM EDT No acute findings. -------- FINAL REPORT -------- Dictated By: Amol Zimmerman Dictated Date: 12/11/2024 11:28 ET Assigned Physician: Amol Zimmerman Reviewed and Electronically Signed By: Amol Zimmerman Signed Date: 12/11/2024 11:30 ET Workstation ID: [id number] Transcribed By: Self Edit Transcribed Date: 12/11/2024 11:29 ET Narrative 12/11/2024 11:30 AM EDT PROCEDURE: AP chest radiograph. HISTORY: Neuro deficit, acute, stroke suspected. COMPARISON: 03/07/2024. FINDINGS: Mildly hypoventilatory inspiratory effort. ??Patchy subsegmental atelectasis at the bases. ??Pleural spaces, pulmonary vasculature, cardiomediastinal contours are normal. Procedure Note Amol Zimmerman MD - 12/11/2024 PROCEDURE: AP chest radiograph. HISTORY: Neuro deficit, acute, stroke suspected. COMPARISON: 03/07/2024. FINDINGS: Mildly hypoventilatory inspiratory effort. Patchy subsegmentalatelectasis at the bases. Pleural spaces, pulmonary vasculature,cardiomediastinal contours are normal. IMPRESSION: No acute findings. -------- FINAL REPORT -------- Dictated By: Amol Zimmerman Dictated Date: 12/11/2024 11:28 ET Assigned Physician: Amol Zimmerman Reviewed and Electronically Signed By: Amol Zimmerman Signed Date: 12/11/2024 11:30 ET Workstation ID: [id number] Transcribed By: Self Edit Transcribed Date: 12/11/2024 11:29 ET Liz ANTUNEZ IMG XR PROCEDURES Final Result * Activated partial thromboplastin time (12/11/2024 10:03 AM EDT) aPTT 33.8 24.1 - 39.3 sec LAB COAGULATION METHOD 12/11/2024 10:40 AM EDT [facility] Blood Venous blood specimen / Unknown Venipuncture / Unknown 12/11/2024 10:03 AM EDT 12/11/2024 10:21 AM EDT Liz ANTUNEZ LAB BLOOD ORDERABLES Fin al Result Performing Organization Address [facility] de Phone Number [facility] [address] [place] [address], [place] [phone] * (ABNORMAL) Prothrombin time with INR (12/11/2024 10:03 AM EDT) [facility] Protime 10.3(L) 10.6 - 13.9 sec LAB COAGULATION METHOD 12/11/2024 10:40 AM EDT [facility] INR 0.8 LAB COAGULATION METHOD 12/11/2024 10:40 AM EDT [facility] Blood Venous blood specimen / Unknown Venipuncture / Unknown 12/11/2024 10:03 AM EDT 12/11/2024 10:21 AM EDT Liz ANTUNEZ LAB BLOOD ORDERABLES Fin al Result Performing Organization Address [facility]/ZIP Co de Phone Number [facility] [address] [place] [address], [place] [phone] from Last 3 Months Insurance [facility] Advance Directives Documents on File Type Date Recorded 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 Do not modify or discontinue any currently active code status orders. Care Teams Solid Surface Fabricator Relationship Specialty Start Date End Date Nell Chatterjee MD [address] [place] [address] [place] [address] PCP - General 03/22/23
--- OUTSIDE RECORDS SUMMARY | 2025-01-23 15:40 | XMS_ITS | Clinical Summary ---
Author Organization [facility] Address [address] [place] [address] Care Team Providers Care Aircraft Cabin Cleaner Name Role Phone Nell Chatterjee MD Primary Care Provider [phone] Allergies Active Allergy Reactions Criticality Noted Date [...] 5 07/11/2022 Active ergocalciferol (VITAMIN D2) capsule 74664 units Take 1 capsule (50,000 Units total) [...] age to complete this topic Care Teams Aircraft Cabin Cleaner Relationship Specialty Start Date End Date Nell Chatterjee MD [address] [facility] [address] [place] [phone] PCP - General Internal Medicine 03/22/23
== END 2025-01-23 15:22 | disposition home or self-care (01) ==
LOC: HO.PMC 15:00
PROVIDERS: PCP Nurse Practitioner Family; Visit Provider Nurse Practitioner Family
DX: M53.3 Sacrococcygeal disorders, not elsewhere classified (principal); M54.50 Low back pain, unspecified; M25.552 Pain in left hip; M16.12 Unilateral primary osteoarthritis, left hip
CPT/HCPCS: 99214; G2211

== ENCOUNTER → 2025-01-23 14:59 | Outpatient (BNVA) | payer OTHER, SELFPAY | PROVIDERS: PCP Nurse Practitioner Family; Visit Provider Nurse Practitioner Family | DX: M54.50 Low back pain, unspecified (principal); M53.3 Sacrococcygeal disorders, not elsewhere classified; M16.12 Unilateral primary osteoarthritis, left hip | CPT/HCPCS: 99212 ==

== ENCOUNTER 2025-04-07 06:21 | Outpatient (REF) | payer OTHER, SELFPAY ==
--- NOTE | ~2025-04-07 | FL_ITS ---
EXAMINATION: FL GUIDANCE ONLY HISTORY: M16.12 - Unilateral primary osteoarthritis, left hip COMPARISON: None available. TECHNIQUE: Fluoroscopy time: 0.1 minutes. Cumulative Dose: 4.64 mGy. DAP: 0.0759 mGym2 Images: 1. FINDINGS: A single fluoroscopic spot film of the left hip demonstrates a needle in place and contrast material within the joint space. FL/FL guidance in treatment room IMPRESSION: Fluoroscopy during procedure. Please see procedure report for additional information. Electronically signed by: Dominik Jennings MD 04/07/2025 03:16 PM EDT
--- OUTSIDE RECORDS SUMMARY | 2025-04-07 06:23 | XMS_ITS | Clinical Summary ---
Author Organization [facility] Address [address] [place] [address] Care Team Providers Care Yard Supervisor Cotton Gin Name Role Phone Nell Chatterjee MD Primary Care Provider [phone] Allergies Active Allergy Reactions Criticality Noted Date [...] 5 07/11/2022 Active ergocalciferol (VITAMIN D2) capsule 13946 units Take 1 capsule (50,000 Units total) [...] 93 07/15/2024 12:28 PM EDT Temperature 36 C (96.8 F) 07/15/2024 12:28 PM EDT Respiratory Rate 16 [...] (1 of 2) 2023 Influenza Vaccine (#1) 2025 Pneumococcal Vaccine Aged Out No long er eligible based on patient's age to complete this topic RSV Ped < 20 months Aged Out No longe r eligible based on patient's age to complete this topic Care Teams Yard Supervisor Cotton Gin Relationship Specialty Start Date End Date Nell Chatterjee MD [address] [facility] [address] [place] [phone] PCP - General Internal Medicine 03/22/23
--- OUTSIDE RECORDS SUMMARY | 2025-04-07 06:23 | XMS_ITS | Clinical Summary ---
Author Organization [address] [facility] Address [address] [place] [address] Phone Care Team Providers Care Gas Controller Name Role Phone Nell Chatterjee MD Primary Care Provider [phone] Allergies Active Allergy Reactions Criticality Noted Date Comments Vancomycin Itching 10/13/2020 Medications albuterol HFA (ProAir HFA) 90 mcg/actuation inhaler Inhale 2 puffs by mouth every 4 (four) hours if needed for wheezing or shortness of breath. 1 Active montelukast (SINGULAIR) 10 mg tablet Take 1 tablet (10 mg total) by mouth 1 (one) time each day. 1 Active cholecalciferol (VITAMIN D-3) 50 mcg (2,000 unit) capsule 1 po qd 30 capsule 5 4 Active Qulipta 60 mg tablet Take 1 tablet by mouth 1 (one) time each day. 5 Active LORazepam (ATIVAN) 1 mg tablet Take 1 tablet (1 mg total) by mouth at bedtime as needed for sleep. 5 Active traMADoL (ULTRAM) 50 mg tablet Take 1 tablet (50 mg total) by mouth at bedtime. 5 Active FLUoxetine (PROzac) 40 mg capsule Take 1 capsule (40 mg total) by mouth 1 (one) time each day. Active SUMAtriptan (IMITREX) 50 mg tablet Take 1 tablet (50 mg total) by mouth 1 (one) time if needed for migraine (may repeat x1) for up to 1 dose. May repeat dose once in 2 hours if no relief. Do not exceed 2 doses in 24 hours. 9 tablet 5 5 Active verapamiL (CALAN) 40 mg tablet TAKE 1 TABLET BY MOUTH 1 TIME EACH DAY FOR 14 DAYS. 14 tablet 5 Active baclofen (LIORESAL) 10 mg tablet TAKE 1 TABLET BY MOUTH THREE TIMES A DAY 270 tablet 1 5 Active ergocalciferol (VITAMIN D-2) 1,250 mcg (50,000 unit) capsule Take 1 capsule (50,000 Units total) by mouth 1 (one) time per week. SUNDAY 4 capsule 2 5 03/13/20 Active Problems Problem Noted Date Diagnosed Date Bipolar disorder, unspecified ([facility] V24, [facility] V28) 03/08/2024 Multiple sclerosis ([facility] V24, [facility] V28) Depression 10/14/2020 Intramural leiomyoma of uterus 02/12/2007 Papanicolaou smear of cervix with low grade squamous intraepithelial lesion (LGSIL) 02/12/2007 Resolved Problems Problem Noted Date Diagnosed Date Resolved Date Transient neurological symptoms 12/11/2024 12/13/2024 Encounters Date Type Department Care Team Description 03/04/2025 1:00 PM EDT Office Visit [facility] - [address] [phone] Christina Martinez PA Multiple sclerosis ([facility] V24, [facility] V28) (Primary Dx) 01/13/2025 8:00 AM EDT Office Visit [address] [phone] Bo Benites MD Chronic migraine without aura without status migrainosus, not intractable (Primary Dx); Multiple sclerosis ([facility] V24, [facility] V28); High risk medication use; Spasticity 01/13/2025 7:45 AM EDT - 01/13/2025 11:59 PM EDT Hospital Encounter [facility] [place] [facility] - [address] [place] [phone] Multiple sclerosis (CMS/HCC V24, CMS/HCC V28) (Primary Dx) Discharge Disposition: Home or Self Care from Last 3 Months Surgical History Surgery Date Site/Laterality Comments CHOLECYSTECTOMY Medical History Medical History Date Comments MS (multiple sclerosis) (CMS /HCC V24, CMS/HCC V28) DX:[facility] (multiple sclerosis) ( [facility] [...] Sign Reading Time Taken Comments Blood Pressure 129/76 03/04/2025 1:17 PM EDT Pulse 80 03/04/2025 1:17 PM EDT Temperature 36.2 C (97.2 F) 03/04/2025 1:17 PM EDT Respiratory Rate 16 01/13/2025 11:44 AM EDT Oxygen Saturation 94% 01/13/2025 11:44 AM EDT Inhaled Oxygen Concentration - - Weight 85.7 kg (189 lb) 12/11/2024 9:39 AM EDT Height 162.6 cm (5' 4 ) 12/11/2024 9:39 AM EDT Body Mass Index 32.44 12/11/2024 9:39 AM EDT Plan of Treatment Upcoming Encounters Date Type Department Care Team (Late st Contact Info) Description 06/04/2025 9:30 AM EDT Office Visit [facility] [address] [facility] [address] [place] [phone] Christina Martinez PA [address] [facility] [address] [place] [address] 07/14/2025 8:00 AM EDT Appointment [facility] Outpatient Rehabilititation [address] [phone] Health Maintenance Due Date Last Done Comments Breast Cancer Screening 1973 Hepatitis B Vaccines (1 of 3 - 19+ 3-dose series) 02/01/1992 Cervical Cancer Screening: Pap Smear 1994 Colorectal Cancer Screening: Colonoscopy 09/08/2022 Depression Screening 09/08/2022 HIV Screening 09/08/2022 Hepatitis C Screening 09/08/2022 Social Influencers of Health Screening 09/08/2022 Zoster Vaccines (2 of 2) 07/27/2023 06/01/2023 Influenza Vaccine (#1) 2025 , 06/01/2023, 08/18/2022, Additional history exists DTaP,Tdap,and Td Vaccines (3 - Td or Tdap) 07/08/2031 07/08/2021, 06/04/2013 Pneumococcal Vaccine: 50+ Years Completed 07/19/2023, 06/07/2016 Pneumococcal Vaccine: Pediatrics (0 to 5 Years) and At-Risk Patients (6 to 49 Years) Completed 07/19/2023, 06/07/2016 COVID-19 Vaccine Completed [...] Procedure Name Priority Date/Time Associated Diagnosis Comments REAL URINE CULTURE TUBE Routine 03/05/2025 1:24 PM EDT Multiple sclerosis ([facility] V24, [facility] V28) URINALYSIS WITH REFLEX MICROSCOPIC AND CULTURE Routine 03/05/2025 1:24 PM EDT Multiple sclerosis ([facility] V24, [facility] V28) CBC WITH AUTO DIFFERENTIAL Routine 03/05/2025 1:24 PM EDT Multiple sclerosis ([facility] V24, [facility] V28) URINALYSIS WITH REFLEX MICROSCOPIC AND CULTURE Routine 03/05/2025 1:24 PM EDT Multiple sclerosis ([facility] V24, [facility] V28) CBC AND DIFFERENTIAL Routine 03/05/2025 1:24 PM EDT Multiple sclerosis ([facility] V24, [facility] V28) from Last 3 Months Results * (ABNORMAL) Urinalysis with reflex microscopic and culture (03/05/2025 1:24 PM EDT) Specific [place] Urine 1.028 1.003 - 1.030 LAB URINALYSIS - AUTOMATED METHOD 03/05/2025 2:25 PM [facility] pH, Urine 5.0 5.0 - 8.0 pH LAB URINALYSIS - AUTOMATED METHOD 03/05/2025 2:25 PM [facility] Leukocytes, Urine Negative Negative LAB URINALYSIS - AUTOMATED METHOD 03/05/2025 2:25 PM [facility] Nitrite, Urine Negative Negative LAB URINALYSIS - AUTOMATED METHOD 03/05/2025 2:25 PM [facility] Protein, Urine Negative <=Trace mg/dL LAB URINALYSIS - AUTOMATED METHOD 03/05/2025 2:25 PM [facility] Glucose, Urine Negative Negative mg/dL LAB URINALYSIS - AUTOMATED METHOD 03/05/2025 2:25 PM [facility] Ketones, Urine Trace(A) Negative mg/dL LAB URINALYSIS - AUTOMATED METHOD 03/05/2025 2:25 PM EDT [facility] Urobilinogen, Urine 0.2 0.2 - 1.0 mg/dL LAB URINALYSIS - AUTOMATED METHOD 03/05/2025 2:25 PM EDT [facility] Bilirubin, Urine Small(A) Negative LAB URINALYSIS - AUTOMATED METHOD 03/05/2025 2:25 PM EDT [facility] Blood, Urine Negative Negative LAB URINALYSIS - AUTOMATED METHOD 03/05/2025 2:25 PM EDT [facility] Urine Urine specimen obtained by clean catch procedure / Unknown Non-blood Collection / Unknown 03/05/2025 1:24 PM EDT 03/05/2025 1:24 PM EDT Christinanoam Zhangi PA LAB URINE ORDERABLES Final R esult Performing Organization Address [facility]/ZIP Co de Phone Number [facility] [address] [place] [address], [place] [phone] * Real urine culture tube (03/05/2025 1:24 PM EDT) Extra Tube Hold for add-ons. 03/05/2025 3:01 PM EDT [facility] Comment:Auto resulted. Urine Urine specimen obtained by clean catch procedure / Unknown Non-blood Collection / Unknown 03/05/2025 1:24 PM EDT 03/05/2025 1:24 PM EDT Christinanoam Yostasci PA LAB URINE ORDERABLES Final R esult Performing Organization Address City/[facility]/ZIP Co de Phone Number [facility] [address] [place] [address], [place] [phone] * (ABNORMAL) CBC auto differential (03/05/2025 1:24 PM EDT) [facility] WBC 9.9 4.8 - 10.8 K/mcL LAB HEMETOLOGY METHOD 03/05/2025 2:30 PM EDT [facility] RBC 4.10 3.80 - 4.80 M/mcL LAB HEMETOLOGY METHOD 03/05/2025 2:30 PM EDT [facility] Hemoglobin 12.6 11.5 - 16.0 g/dL LAB HEMETOLOGY METHOD 03/05/2025 2:30 PM EDT [facility] Hematocrit 40.0 35.0 - 47.0 % LAB HEMETOLOGY METHOD 03/05/2025 2:30 PM EDT [facility] MCV 97.6 79.0 - 98.0 FL LAB HEMETOLOGY METHOD 03/05/2025 2:30 PM EDT [facility] MCH 30.7 27.0 - 32.0 pcg LAB HEMETOLOGY METHOD 03/05/2025 2:30 PM EDT [facility] MCHC 31.5(L) 32.0 - 37.0 g/dL LAB HEMETOLOGY METHOD 03/05/2025 2:30 PM EDT [facility] RDW 14.2 11.0 - 15.0 % LAB HEMETOLOGY METHOD 03/05/2025 2:30 PM EDT [facility] Platelets 289 130 - 400 K/mcL LAB HEMETOLOGY METHOD 03/05/2025 2:30 PM EDT [facility] MPV 11.9(H) 7.0 - 11.0 FL LAB HEMETOLOGY METHOD 03/05/2025 2:30 PM EDT [facility] NRBC 0.0 <1.0 % LAB HEMETOLOGY METHOD 03/05/2025 2:30 PM EDT [facility] NRBC Absolute 0.00 <0.10 K/mcL LAB HEMETOLOGY METHOD 03/05[facility]2025 [facility] Neutrophils Relative 65.0 % LAB HEMETOLOGY METHOD 03/05/2025 2:30 PM [facility] Lymphocytes Relative 24.3 % LAB HEMETOLOGY METHOD 03/05/2025 2:30 PM [facility] Monocytes Relative 7.8 % LAB HEMETOLOGY METHOD 03/05/2025 2:30 PM [facility] Eosinophils Relative 1.9 % LAB HEMETOLOGY METHOD 03/05/2025 2:30 PM [facility] Basophils Relative 0.6 % LAB HEMETOLOGY METHOD 03/05/2025 2:30 PM [facility] Immature Granulocytes Relative 0.4 % LAB HEMETOLOGY METHOD 03/05/2025 2:30 PM [facility] Neutrophils Absolute 6.43 1.50 - 7.00 K/mcL LAB HEMETOLOGY METHOD 03/05/2025 2:30 PM [facility] Lymphocytes Absolute 2.41 1.00 - 5.00 K/mcL LAB HEMETOLOGY METHOD 03/05/2025 2:30 PM [facility] Monocytes Absolute 0.77 0.20 - 1.00 K/mcL LAB HEMETOLOGY METHOD 03/05/2025 2:30 PM [facility] Eosinophils Absolute 0.19 0.00 - 0.50 K/mcL LAB HEMETOLOGY METHOD 03/05/2025 2:30 PM [facility] Basophils Absolute 0.06 0.00 - 0.20 K/mcL LAB HEMETOLOGY METHOD 03/05/2025 2:30 PM [facility] Immature Granulocytes Absolute 0.04(H) 0.00 - 0.03 K/mcL LAB HEMETOLOGY METHOD 03/05/2025 2:30 PM [facility] Blood Venous blood specimen / Unknown Venipuncture / Unknown 03/05/2025 1:24 PM EDT 03/05/2025 1:24 PM EDT us Christina ANTUNEZ LAB BLOOD ORDERABLES Final R esult [facility] [address] [place] [address], from Last 3 Months Insurance [facility] Advance Directives Documents on File Type Date Recorded Patient Executive Talent Acquisition 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 Care Teams Gas Controller Relationship Specialty Start Date End Date Nell Chatterjee MD [address] [place] [address] Dr Moon, [place] [address] PCP - General 03/22/23
--- OUTSIDE RECORDS SUMMARY | 2025-04-07 06:23 | XMS_ITS ---
[facility] Name [facility] Unknown History of Medication Use Medication Directions Dispensed Refills Start Date End Date Stat methocarbamol (ROBAXIN) 500 MG tablet TAKE 1 TABLET BY MOUTH TWICE A DAY NEEDED FOR MUSCLE SPASM 04/02/2024 active topiramate (Topamax) 25 MG tablet 1 po hs x 1 week, then 1 po bid x 1 week, then 1 po in am and 2 po hs x 1 week, then 2 po bid 01/28/2024 active ergocalciferol (VITAMIN D2) capsule 79235 units Take 1 capsule (50,000 Units total) by mouth once a week. 12/10/2023 active D3 Super Strength 50 MCG (1999 UT) CAPS TAKE 1 CAPSULE BY MOUTH EVERY DAY 09/19/2023 active Ubrogepant (Ubrelvy) 100 MG TABS Take 100 mg by mouth daily as needed (max 10/). 07/27/2023 active acetaminophen (TYLENOL) tablet 975 mg 975 mg, Oral, Once, On Sun01/15/24 at 0945, For 1 doseGive 30 minutes prior to ocrelizumab. 07/18/2023 4 completed methylPREDNISolone sodium succinate (SOLU-Medrol) injection 125 mg 125 mg, Intravenous, Once, On Sun01/15/24 at 0945, For 1 doseGive 30 minutes prior to ocrelizumab. Administer over 2-3 minutes 07/18/2023 4 completed Cholecalciferol (Vitamin D3) 50 MCG (2000 UT) capsule TAKE 1 CAPSULE BY MOUTH EVERY DAY 03/22/2023 active baclofen (LIORESAL) 10 MG tablet TAKE 1 TABLET BY MOUTH THREE TIMES A DAY 02/12/2023 active mirtazapine (REMERON) 7.5 MG tablet TAKE 1 TABLET BY MOUTH AT BEDTIME STOP IF EATING TO MUCH OR GAIN WEIGHT 05/25/2022 4 aborted Allergies Allergen Reaction Severity Comment Documented Date Source Statu s VANCOMYCIN ITCHING 10/13/2020 [facility] active Problems Problem Status Onset Date Problem Type Date of Resoluti on Source Depression active 2020-10-14 ProblemAct [facility] Multiple sclerosis active 2021-10-20 ProblemAct [facility]
== END 2025-04-07 06:22 | disposition home or self-care (01) ==
LOC: CF 06:21
PROVIDERS: Visit Provider Anesthesiology
DX: M16.12 Unilateral primary osteoarthritis, left hip (principal); M25.552 Pain in left hip; M53.3 Sacrococcygeal disorders, not elsewhere classified; M54.40 Lumbago with sciatica, unspecified side
CPT/HCPCS: 20610; J2003; J2795; J3301; Q9967

== ENCOUNTER 2025-04-07 14:25 | Outpatient (AMB) | payer OTHER, SELFPAY ==
--- NOTE | 2025-04-07 14:26 | A.OFFVIS_ITS ---
Vital Signs 04/07/25 14:31 Height 5 ft 4 in Weight 186 lb BMI 31.9 BP 121/81 Blood Pressure Location Lt brachial Position Sitting Respiration 16 Pulse 82 Pulse Source Pulse Oximeter Pulse Oximetry (%) 98 Oxygen Delivery Method Room Air Intake Visit Reasons: LEFT INTRA-ARTICULAR HIP INJECTION Allergies vancomycin (VANCOMYCIN) Allergy (Severe, Verified 01/23/25 15:09) ITCHINESS PFSH Medical History Depression Multiple sclerosis Asthma Surgical History S/P cholecystectomy H/O: hysterectomy Social History Patient Tobacco Use Status: Never used Tobacco Physical Exam Vital Signs: Last Vital Signs Pulse 82 04/07/25 14:31 Resp 16 04/07/25 14:31 BP 121/81 04/07/25 14:31 Pulse Ox 98 04/07/25 14:31 Oxygen Delivery Method Room Air 04/07/25 14:31 BMI result Body Mass Index 31.9 Assessment & Plan Assessment & Plan (1) Sacroiliac joint pain: Code(s): M53.3 - Sacrococcygeal disorders, not elsewhere classified Category: Medical (2) Low back pain: Code(s): M54.50 - Low back pain, unspecified Category: Medical (3) Left hip pain: Code(s): M25.552 - Pain in left hip Category: Medical (4) Osteoarthritis of left hip: Code(s): M16.12 - Unilateral primary osteoarthritis, left hip Category: Medical Plan Left intra-articular hip steroid injection. Patient came to the operating room after informed consent was thoroughly explained to the patient. She was positioned on the right lateral decubitus position on the operating table with the nondependent left hip area exposed. Time-out was performed delineating name and date of of the patient, nature of the procedure side and site of the procedure. The patient's nondependent left hip was prepped with ChloraPrep and draped with sterile utility towels. C-arm was brought over the operating field and picture of the hip joint was demonstrated on the screen. In the projection of the right trochanter 5 mm above the most superior point of left trochanter projection to the skin injection of the local anesthetic mixture of lidocaine 2% and ropivacaine 0.5% was performed forming a skin wheal. After that 22 gauge 5 in needle was inserted through the skin wheal and advanced to the joint and the anterior posterior and lateral views intermittently. When the tip of the needle entered the silhouette of the joint injection of the contrast was performed demonstrating arthrogram. After that 4 cc of ropivacaine 0.5% mixed with Kenalog 40 mg was injected into the joint. The needle was removed sterile Band- Aid was applied. Patient tolerated procedure well. Orders: Orders FL guidance in treatment room Today M16.12 - Unilateral primary osteoarthritis, left hip Coding Level of Care Code Procedure Only Diagnoses Sacroiliac joint pain M53.3 Low back pain M54.50 Left hip pain M25.552 Osteoarthritis of left hip M16.12
[2025-04-07 14:31] VITALS: BP 121/81; PULSE 82; RESP 16; O2SAT 98; BMI 31.9
--- OUTSIDE RECORDS SUMMARY | 2025-04-07 15:17 | XMS_ITS | Clinical Summary ---
Author Organization [facility] Address [address] [place] [address] Care Team Providers Care Packaging Sales Consultant Name Role Phone Nell Chatterjee MD Primary Care Provider [phone] Allergies Active Allergy Reactions Criticality Noted Date [...] 5 07/11/2022 Active ergocalciferol (VITAMIN D2) capsule 11391 units Take 1 capsule (50,000 Units total) [...] age to complete this topic Care Teams Packaging Sales Consultant Relationship Specialty Start Date End Date Nell Chatterjee MD [address] [facility] [address] [place] [id number] PCP - General Internal Medicine 03/22/23
--- OUTSIDE RECORDS SUMMARY | 2025-04-07 15:17 | XMS_ITS | Clinical Summary ---
Author Organization [facility] Address [address] [place] [address] Phone Care Team Providers Care Emergency Medical Technician Name Role Phone Nell Chatterjee MD Primary Care Provider [phone] Allergies Active Allergy Reactions Criticality Noted Date [...] Noted Date Diagnosed Date Bipolar disorder, unspecified ([facility] V24, [facility]/ [facility] V28) 03/08/2024 Multiple sclerosis ([facility] V24, [facility] V28) Depression 10/14/2020 Intramural leiomyoma of uterus 02/12/2007 Papanicolaou smear of cervix with low grade squamous intraepithelial lesion (LGSIL) 02/12/2007 Resolved Problems Problem Noted Date Diagnosed Date Resolved Date Transient neurological symptoms 12/11/2024 12/13/2024 Encounters Date Type Department Care Team Description 03/04/2025 1:00 PM EDT Office Visit [facility] - [address] [phone] Christina Martinez PA Multiple sclerosis ([facility] V24, [facility] V28) (Primary Dx) 01/13/2025 8:00 AM EDT Office Visit [address] [phone] Bo Benites MD Chronic migraine without aura without status migrainosus, not intractable (Primary Dx); Multiple sclerosis ([facility] V24, [facility] V28); High risk medication use; Spasticity 01/13/2025 7:45 AM EDT - 01/13/2025 11:59 PM EDT Hospital Encounter [facility] [place] [facility] - [address] [place] [phone] Multiple sclerosis (CMS/HCC V24, CMS/HCC V28) (Primary Dx) Discharge Disposition: Home or Self Care from Last 3 Months Surgical History Surgery Date Site/Laterality Comments CHOLECYSTECTOMY Medical History Medical History Date Comments MS (multiple sclerosis) (CMS /HCC V24, CMS/HCC V28) DX:MS (multiple sclerosis) ( [facility]) Family History Medical History Relation Name Comments [...] Description 06/04/2025 9:30 AM EDT Office Visit [facility] [address] [facility] [address] [place] [phone] Christina Martinez PA [address] [facility] [address] [place] [address] 07/14/2025 8:00 AM EDT Appointment [facility] [address] [phone] Health Maintenance Due Date Last [...] Routine 03/05/2025 1:24 PM EDT Multiple sclerosis ([facility] V24, [facility] V28) URINALYSIS WITH REFLEX MICROSCOPIC AND CULTURE Routine 03/05/2025 1:24 PM EDT Multiple sclerosis ([facility] V24, [facility] V28) CBC WITH AUTO DIFFERENTIAL Routine 03/05/2025 1:24 PM EDT Multiple sclerosis ([facility] V24, [facility] V28) URINALYSIS WITH REFLEX MICROSCOPIC AND CULTURE Routine 03/05/2025 1:24 PM EDT Multiple sclerosis ([facility] V24, [facility] V28) CBC AND DIFFERENTIAL Routine 03/05/2025 1:24 PM EDT Multiple sclerosis ([facility] V24, [facility] V28) from Last 3 Months Results * (ABNORMAL) Urinalysis with reflex microscopic and culture (03/05/2025 1:24 PM EDT) Specific [place] Urine 1.028 1.003 - 1.030 LAB URINALYSIS - AUTOMATED METHOD 03/05/2025 2:25 PM [facility] pH, Urine 5.0 5.0 - 8.0 pH LAB URINALYSIS - AUTOMATED METHOD 03/05/2025 2:25 PM [facility] Leukocytes, Urine Negative Negative LAB URINALYSIS - AUTOMATED METHOD 03/05/2025 2:25 PM [facility] Nitrite, Urine Negative Negative LAB URINALYSIS - AUTOMATED METHOD 03/05/2025 2:25 PM [facility] Protein, Urine Negative <=Trace mg/dL LAB URINALYSIS - AUTOMATED METHOD 03/05/2025 2:25 PM [facility] Glucose, Urine Negative Negative mg/dL LAB URINALYSIS - AUTOMATED METHOD 03/05/2025 2:25 PM [facility] Ketones, Urine Trace(A) Negative mg/dL LAB URINALYSIS - AUTOMATED METHOD 03/05/2025 2:25 PM EDT [facility] Urobilinogen, Urine 0.2 0.2 - 1.0 mg/dL LAB URINALYSIS - AUTOMATED METHOD 03/05/2025 2:25 PM EDT [facility] Bilirubin, Urine Small(A) Negative LAB URINALYSIS - AUTOMATED METHOD 03/05/2025 2:25 PM EDT [facility] Blood, Urine Negative Negative LAB URINALYSIS - AUTOMATED METHOD 03/05/2025 2:25 PM EDT [facility] Urine Urine specimen obtained by clean catch procedure / Unknown Non-blood Collection / Unknown 03/05/2025 1:24 PM EDT 03/05/2025 1:24 PM EDT Christinanoam Zhangi PA LAB URINE ORDERABLES Final R esult Performing Organization Address [facility]/ZIP Co de Phone Number [facility] [address] [place] [address], [place] [phone] * Real urine culture tube (03/05/2025 1:24 PM EDT) Extra Tube Hold for add-ons. 03/05/2025 3:01 PM EDT [facility] Comment:Auto resulted. Urine Urine specimen obtained by clean catch procedure / Unknown Non-blood Collection / Unknown 03/05/2025 1:24 PM EDT 03/05/2025 1:24 PM EDT Christinanoam Yostasci PA LAB URINE ORDERABLES Final R esult Performing Organization Address City/[facility]/ZIP Co de Phone Number [facility] [address] [place] [address], [place] [phone] * (ABNORMAL) CBC auto differential (03/05/2025 1:24 PM EDT) [facility] WBC 9.9 4.8 - 10.8 K/mcL LAB HEMETOLOGY METHOD 03/05/2025 2:30 PM EDT [facility] RBC 4.10 3.80 - 4.80 M/mcL LAB HEMETOLOGY METHOD 03/05/2025 2:30 PM EDT [facility] Hemoglobin 12.6 11.5 - 16.0 g/dL LAB HEMETOLOGY METHOD 03/05/2025 2:30 PM EDT [facility] Hematocrit 40.0 35.0 - 47.0 % LAB HEMETOLOGY METHOD 03/05/2025 2:30 PM EDT [facility] MCV 97.6 79.0 - 98.0 FL LAB HEMETOLOGY METHOD 03/05/2025 2:30 PM EDT [facility] MCH 30.7 27.0 - 32.0 pcg LAB HEMETOLOGY METHOD 03/05/2025 2:30 PM EDT [facility] MCHC 31.5(L) 32.0 - 37.0 g/dL LAB HEMETOLOGY METHOD 03/05/2025 2:30 PM EDT [facility] RDW 14.2 11.0 - 15.0 % LAB HEMETOLOGY METHOD 03/05/2025 2:30 PM EDT [facility] Platelets 289 130 - 400 K/mcL LAB HEMETOLOGY METHOD 03/05/2025 2:30 PM EDT [facility] MPV 11.9(H) 7.0 - 11.0 FL LAB HEMETOLOGY METHOD 03/05/2025 2:30 PM EDT [facility] NRBC 0.0 <1.0 % LAB HEMETOLOGY METHOD 03/05/2025 2:30 PM EDT [facility] NRBC Absolute 0.00 <0.10 K/mcL LAB HEMETOLOGY METHOD 03/05[facility]25 [facility] Neutrophils Relative 65.0 % LAB HEMETOLOGY METHOD 03/05/2025 2:30 PM [facility] Lymphocytes Relative 24.3 % LAB HEMETOLOGY METHOD 03/05/2025 2:30 PM [facility] Monocytes Relative 7.8 % LAB HEMETOLOGY METHOD 03/05/2025 2:30 PM [facility] Eosinophils Relative 1.9 % LAB HEMETOLOGY METHOD 03/05/2025 2:30 PM [facility] Basophils Relative 0.6 % LAB HEMETOLOGY METHOD 03/05/2025 2:30 PM [facility] Immature Granulocytes Relative 0.4 % LAB HEMETOLOGY METHOD 03/05/2025 2:30 PM [facility] Neutrophils Absolute 6.43 1.50 - 7.00 K/mcL LAB HEMETOLOGY METHOD 03/05/2025 2:30 PM [facility] Lymphocytes Absolute 2.41 1.00 - 5.00 K/mcL LAB HEMETOLOGY METHOD 03/05/2025 2:30 PM [facility] Monocytes Absolute 0.77 0.20 - 1.00 K/mcL LAB HEMETOLOGY METHOD 03/05/2025 2:30 PM [facility] Eosinophils Absolute 0.19 0.00 - 0.50 K/mcL LAB HEMETOLOGY METHOD 03/05/2025 2:30 PM [facility] Basophils Absolute 0.06 0.00 - 0.20 K/mcL LAB HEMETOLOGY METHOD 03/05/2025 2:30 PM [facility] Immature Granulocytes Absolute 0.04(H) 0.00 - 0.03 K/mcL LAB HEMETOLOGY METHOD 03/05/2025 2:30 PM [facility] Blood Venous blood specimen / Unknown Venipuncture / Unknown 03/05/2025 1:24 PM EDT 03/05/2025 1:24 PM EDT us Christina ANTUNEZ LAB BLOOD ORDERABLES Final R esult [facility] [address] [place] [address], from Last 3 Months Insurance [facility] [employer] [facility] Advance Directives Documents on File Type Date Recorded Patient Outsole Flexer Expl anation Health Care Decision (hx) 10/18/2018 [...] DIRECTIVE Health Care Decision (hx) 04/30/2013 AD OSEGEURA DIRECTIVE Health Care Decision (hx) 04/30/2013 AD [...] currently active code status orders. Care Teams Emergency Medical Technician Relationship Specialty Start Date End Date Nell Chatterjee MD [address] [place] [address] Dr [place], [place] [id number] PCP - General 03/22/23
== END 2025-04-07 15:08 | disposition home or self-care (01) ==
LOC: HO.PMCPRC 14:25
PROVIDERS: PCP Nurse Practitioner Family; Visit Provider Anesthesiology
DX: M53.3 Sacrococcygeal disorders, not elsewhere classified (principal); M54.50 Low back pain, unspecified; M25.552 Pain in left hip; M16.12 Unilateral primary osteoarthritis, left hip
CPT/HCPCS: 20610; 77002

== ENCOUNTER 2025-04-21 10:50 | Outpatient (AMB) | payer OTHER, SELFPAY ==
--- NOTE | 2025-04-21 10:51 | A.OFFVIS_ITS ---
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 The patient reports that she received a left hip steroid injection on April 07, which did not alleviate her pain and instead resulted in adverse reactions such as nausea and lip swelling. She previously had a therapeutic sacroiliac joint injection in July 2024, which provided complete pain relief without any adverse reactions. Patient is interested in longer term treatment options for left SI joint pain, including neuromodulation with Curonix PNS trial. She is currently seeing Psychologist at [facility] center. Currently, the patient experiences severe pain rated at 9 out of 10, localized to the left buttock and hip area, which prevents her from sleeping on that side. The pain is exacerbated by movement, prolonged sitting or driving, changing positions, walking and she reports decreased strength on the left side during MS flare-ups. - Onset: Pain began after steroid injection on April 07 - Quality: Severe, rated 9 out of 10 - Location: Left buttock and hip area, low back pain on the left side - Exacerbating factors: Movement, inability to sleep on left side - Relieving factors: None, mild relief with rest - Affect: Pain impacts sleep and daily activities - Analgesia: Previous steroid injection ineffective, current pain level 9/10 - Adverse Effects: Nausea and lip swelling from steroid injection - Activities of Daily Living: Difficulty sleeping on left side, decreased strength during flare-ups - Aberrant Drug Related Behaviors: None reported Past Procedures: 04/07/25: Left hip intra-articular steroid injection with fluoro-50% pain relief 12/02/24: Bilateral Diagnostic L3-L4 DR L5 MBB-0% pain relief 07/01/24: Left Therapeutic SIJ injection-100% ongoing pain relief PRIOR: Patient is a 49 years old Estonian speaking female with sclerosis (onset 2006), depression, migraine headaches, presents today for initial evaluation of low back pain. Denies any inciting events, trauma, injury, or falls. Patient reports remote history of injections and physical therapy at [facility]. Back pain is axial in also radiates into left buttock and left lateral hip consistent this left sacroiliac joint pain and piriformis syndrome. She recently completed MRIs [facility] which showed mild disc bulges at L4-L5 and L5-S1, no spinal canal or neural foraminal narrowing at any level. Pain is constant in most severe in the mornings and the middle of the night which she rates 8/10. Pain affects her general activities, sleep, mobility, mood, social activities and quality of life. Denies any fever, chills, abdominal or groin pain, bladder or bowel dysfunction or saddle anesthesia. [facility] Location: Upper back radiates to lower back and left buttock Duration: 5+ years Characteristics of symptom or complaint: Aching, stabbing, sharp, tingling, shooting, throbbing, tiring Aggravating or associated factors: Movements, walking, prolonged standing or sitting, changing positions Relieving factors: Rest, modifying activities, lorazepam, duloxetine, oral steroids Treatment: PT, Injections, MRIs, tried and stopped baclofen and [facility] Medical History Depression Multiple sclerosis Asthma Surgical History S/P cholecystectomy H/O: hysterectomy Social History Patient Tobacco Use Status: Never used Tobacco Review of Systems Const Details: - Musculoskeletal: Reports severe pain in left hip and buttock, decreased strength on left side during flare-ups - Gastrointestinal: Reports nausea following steroid injection - Dermatological: Reports lip swelling following steroid injection, self- resolved All systems reviewed & are unremarkable except as noted in HPI and below Physical Exam Vital Signs: Last Vital Signs Pulse 69 04/21/25 10:54 BP 126/87 04/21/25 10:54 Pulse Ox 98 04/21/25 10:54 Oxygen Delivery Method Room Air 04/21/25 10:54 BMI result Body Mass Index 30.1 General: Appears afebrile. No acute distress. Alert and oriented. Mood and affect appropriate. Follows and participates in conversation appropriately. Respiratory effort is unlabored. No cough. Able to transition from sit to stand unassisted. Ambulates with bilaterally normal heel strike and toe off, reports left side weakness with MS General: Yes no CVA tenderness Back/Spine/Pelvis Other: Limited lumbar ROM due to pain. Non-antalgic, wide base gait. Lumbar extension and flexion forward with bending reproduces mild pain. Demonstrates 5/5 right and 4/5 left strength of quadriceps bilaterally as well as flexion/dorsiflexion of bilateral feet against resistance. 2+ pedal pulses bilaterally. Straight leg rise with dorsiflexion negative bilaterally. +2 patellar and achilles reflexes bilaterally. Facet loading test positive bilaterally. VENUS test reproduces left lateral hip with moderate groin and mild left lower back pain. +Howard?s, Stinchfield, Pelvic Compression and Gaenslen?s test positive on the left. Mild left groin with external>internal hip rotations. Back: no CVA tenderness Cervical Spine: cervical ROM normal, cervical muscular tenderness and No Cervical spine tenderness Thoracic/Lumbar Spine: thoracic and lumbar spine normal to inspection, No Thoracic/lumbar spine scar(s), Lasegue's sign negative, straight leg raise negative bilaterally, pain with thoraco-lumbar ROM, paraspinal muscle tenderness, thoraco-lumbar ROM limited, No thoracic spinal tenderness and lumbar spinal tenderness (L4-S1) Pelvis: buttock tenderness on the left Sacroiliac joints: bilaterally tender to palpation (left>right) Extrem General: Yes capillary refill normal, Yes no clubbing, cyanosis or edema and Yes no calf tenderness Results Reviewed Results Reviewed: XR HIP 1 VIEW LEFT WITH PELVIS 08/04/24 CLINICAL INFORMATION: , M25.552 - Pain in left hip FINDINGS: There is no evidence of acute fracture or dislocation. There are mild degenerative arthritic changes of the hip evident by sclerotic changes of the acetabular roof and narrowing of the joint space. Mild degenerative changes of the SI joints. Adjacent pubic rami are intact. Surrounding soft tissues are unremarkable. 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 XR lumbar spine 6V w bending 12/11/24 7 views lumbar spine Comparison: None Findings: Normal alignment. No acute fractures or dislocation. No significant degenerative change. IMPRESSION: No acute findings. Assessment & Plan Assessment & Plan (1) Sacroiliac joint pain: Code(s): M53.3 - Sacrococcygeal disorders, not elsewhere classified Category: Medical (2) Low back pain: Code(s): M54.50 - Low back pain, unspecified Category: Medical (3) Chronic pain syndrome: Code(s): G89.4 - Chronic pain syndrome Category: Medical (4) Lumbar degenerative disc disease: Code(s): M51.36 - Other intervertebral disc degeneration, lumbar region Category: Medical (5) Lumbar spondylosis: Code(s): M47.816 - Spondylosis without myelopathy or radiculopathy, lumbar region Category: Medical Plan The patient will be evaluated for a Curonix peripheral neurostimulator trial to address sacroiliac joint pain. Placed referral for psychology clearance in anticipation of PNS trial. Extensive discussion regarding the risks and benefits of PNS trial and implant procedures and all questions were answered to patient satisfaction. Will proceed with Curonix PNS for left sacroiliac joint pain trial pending psychology clearance. Additionally, the patient will be provided with an SI joint belt through [employer] [facility] [employer] [facility] to aid in pain management. All questions and concerns have been answered and patient agreed with the plan. Follow up after behavioral evaluation and sooner as needed. Patient was informed and verbally consented to the use of an ambient scribe for clinic note documentation during this visit. Orders: Referrals 2 Behavioral Health Referral G89.4 - Chronic pain syndrome, M53.3 - Sacrococcygeal disorders, not elsewhere classified, M54.50 - Low back pain, unspecified Medications: New 2 sacroiliac belt As directed 1 ea 0RF lumbosascral support and stabilization M53.3 - Sacrococcygeal disorders, not elsewhere classified, M54.50 - Low back pain, unspecified Coding Level of Care Code Est Pt Level 4 (92878) Complex EM visit Add On G2211 Diagnoses Sacroiliac joint pain M53.3 Low back pain M54.50 Chronic pain syndrome G89.4 Lumbar degenerative disc disease M51.36 Lumbar spondylosis M47.816
[2025-04-21 10:54] VITALS: BP 126/87; PULSE 69; O2SAT 98; BMI 30.1
--- OUTSIDE RECORDS SUMMARY | 2025-04-21 12:07 | XMS_ITS | Clinical Summary ---
Author Organization [address] [facility] Address [address] [place] [address] Phone Care Team Providers Care Employment Service Specialist Name Role Phone Nell Chatterjee MD Primary Care Provider [phone] Allergies Active Allergy Reactions Criticality Noted Date [...] A DAY 270 tablet 1 5 Active Active Problems Problem Noted Date Diagnosed Date Bipolar disorder, unspecified ([facility] V24, [facility] V28) 03/08/2024 Multiple sclerosis ([facility] V24, [facility] V28) Depression 10/14/2020 Intramural leiomyoma of uterus 02/12/2007 Papanicolaou smear of cervix with low grade squamous intraepithelial lesion (LGSIL) 02/12/2007 Resolved Problems Problem Noted Date Diagnosed Date Resolved Date Transient neurological symptoms 12/11/2024 12/13/2024 Encounters Date Type Department Care Team Description 04/17/2025 Lab Requisition [facility] - Main Lab [address] [facility] [place] [address] Marilou Shore NP Urinary tract infection, site not specified 03/04/2025 1:00 PM EDT Office Visit [facility] [place] [address] [place] [phone] Christina Martinez PA Multiple sclerosis ([facility] V24, [facility] V28) (Primary Dx) from Last 3 Months Surgical History Surgery Date Site/Laterality Comments CHOLECYSTECTOMY Medical History Medical History Date Comments MS (multiple sclerosis) ([facility] V24, [facility] V28) DX:MS (multiple sclerosis) ( [facility]) Family History Medical History Relation [...] Description 06/04/2025 9:30 AM EDT Office Visit [facility] [place] [address] [place] [phone] Christina Martinez PA [address] [place] [address] 07/14/2025 8:00 AM EDT Appointment [facility] [place] [address] [place] [phone] Health Maintenance Due Date Last Done Comments Breast Cancer Screening 1973 Hepatitis B Vaccines (1 of 3 - 19+ 3-dose series) 02/01/1992 Cervical Cancer Screening: Pap Smear 1994 Colorectal Cancer Screening: Colonoscopy 09/08/2022 HIV Screening 09/08/2022 Hepatitis C Screening 09/08/2022 Social Influencers of Health Screening 09/08/2022 Zoster Vaccines (2 of 2) 07/27/2023 06/01/2023 Depression Screening 10/01/2024 Influenza Vaccine (#1) 2025 , 06/01/2023, 08/18/2022, Additional history exists DTaP,Tdap,and Td Vaccines (3 - Td or Tdap) 07/08/2031 07/08/2021, 06/04/2013 Pneumococcal Vaccine: 50+ Years Completed 07/19/2023, 06/07/2016 COVID-19 Vaccine Completed 07/04/2024, [...] Procedure Name Priority Date/Time Associated Diagnosis Comments CULTURE URINE Routine 04/17/2025 2:23 PM EDT Urinary tract infection, site not specified REAL URINE CULTURE TUBE Routine 03/05/2025 1:24 PM EDT Multiple sclerosis ([facility] V24, [facility] V28) URINALYSIS WITH REFLEX MICROSCOPIC AND CULTURE Routine 03/05/2025 1:24 PM EDT Multiple sclerosis ([facility] V24, [facility]/H[facility] V28) CBC WITH AUTO DIFFERENTIAL Routine 03/05/2025 1:24 PM EDT Multiple sclerosis ([facility] V24, [facility] V28) URINALYSIS WITH REFLEX MICROSCOPIC AND CULTURE Routine 03/05/2025 1:24 PM EDT Multiple sclerosis ([facility]/HCC V24, [facility] V28) CBC AND DIFFERENTIAL Routine 03/05/2025 1:24 PM EDT Multiple sclerosis ([facility] V24, [facility] V28) from Last 3 Months Results * Culture urine (04/17/2025 2:23 PM EDT) [facility] Culture, Urine No growth 04/19/2025 8:29 AM EDT [facility] Urine Urine specimen from urinary conduit / Unknown 04/17/2025 2:23 PM EDT 04/17/2025 6:55 PM EDT us Marilou Shore COMPUTER NETWORK AND SYSTEMS ENGINEER LAB MICROBIOLOGY - GENERA L ORDERABLES Final Result [facility] [address] [place] [address], [place] [phone] * (ABNORMAL) Urinalysis with reflex microscopic and culture (03/05/2025 1:24 PM EDT) [facility] Specific [place] Urine 1.028 1.003 - 1.030 LAB URINALYSIS - AUTOMATED METHOD 03/05/2025 2:25 PM EDT [facility] pH, Urine 5.0 5.0 - 8.0 pH LAB URINALYSIS - AUTOMATED METHOD 03/05/2025 2:25 PM [facility] Leukocytes, Urine Negative Negative LAB URINALYSIS - AUTOMATED METHOD 03/05/2025 2:25 PM [facility] Nitrite, Urine Negative Negative LAB URINALYSIS - AUTOMATED METHOD 03/05/2025 2:25 PM EDT [facility] Protein, Urine Negative <=Trace mg/dL LAB URINALYSIS - AUTOMATED METHOD 03/05/2025 2:25 PM [facility] Glucose, Urine Negative Negative mg/dL LAB URINALYSIS - AUTOMATED METHOD 03/05/2025 2:25 PM [facility] Ketones, Urine Trace(A) Negative mg/dL LAB URINALYSIS - AUTOMATED METHOD 03/05/2025 2:25 PM EDT [facility] Urobilinogen, Urine 0.2 0.2 - 1.0 mg/dL LAB URINALYSIS - AUTOMATED METHOD 03/05/2025 2:25 PM EDT [facility] Bilirubin, Urine Small(A) Negative LAB URINALYSIS - AUTOMATED METHOD 03/05/2025 2:25 PM EDT [facility] Blood, Urine Negative Negative LAB URINALYSIS - AUTOMATED METHOD 03/05/2025 2:25 PM EDT [facility] Urine Urine specimen obtained by clean catch procedure / Unknown Non-blood Collection / Unknown 03/05/2025 1:24 PM EDT 03/05/2025 1:24 PM EDT Christinanoam Martinez PA LAB URINE ORDERABLES Final R esult Performing Organization Address [facility]/ZIP Co de Phone Number [facility] [address] [place] [address], [place] [phone] * Real urine culture tube (03/05/2025 1:24 PM EDT) Pathologist [facility] Extra Tube Hold for add-ons. 03/05/2025 3:01 PM EDT [facility] Comment:Auto resulted. Urine Urine specimen obtained by clean catch procedure / Unknown Non-blood Collection / Unknown 03/05/2025 1:24 PM EDT 03/05/2025 1:24 PM EDT Christinanoam Zhangi PA LAB URINE ORDERABLES Final R esult Performing Organization Address City/[facility]/ZIP Co de Phone Number [facility] [address] [place] [address], [place] [phone] * (ABNORMAL) CBC auto differential (03/05/2025 1:24 PM EDT) WBC 9.9 4.8 - 10.8 K/mcL LAB HEMETOLOGY METHOD 03/05/2025 2:30 PM EDT [facility] RBC 4.10 3.80 - 4.80 M/mcL LAB HEMETOLOGY METHOD [facility] Hemoglobin 12.6 11.5 - 16.0 g/dL LAB HEMETOLOGY METHOD 03/05/2025 2:30 PM EDT [facility] Hematocrit 40.0 35.0 - 47.0 % LAB HEMETOLOGY METHOD 03/05/2025 2:[facility] MCV 97.6 79.0 - 98.0 FL LAB HEMETOLOGY METHOD 03/05/2025 2:30 [facility] MCH 30.7 27.0 - 32.0 pcg LAB HEMETOLOGY METHOD 03/05/2025 2:[facility] MCHC 31.5(L) 32.0 - 37.0 g/dL LAB HEMETOLOGY METHOD 03/05/2025 2:30 PM [facility] RDW 14.2 11.0 - 15.0 % LAB HEMETOLOGY METHOD 03/05/2025 2:30 PM [facility] Platelets 289 130 - 400 K/mcL LAB HEMETOLOGY METHOD 03/05/2025 2:[facility] MPV 11.9(H) 7.0 - 11.0 FL LAB HEMETOLOGY METHOD 03/05/2025 2:[facility] NRBC 0.0 <1.0 % LAB HEMETOLOGY METHOD 03/05/2025 2:[facility] NRBC Absolute 0.00 <0.10 K/mcL LAB HEMETOLOGY METHOD 03/05/2025 2:30 [facility] Neutrophils Relative 65.0 % LAB HEMETOLOGY METHOD 03/05/2025 2:30 PM T [facility] Lymphocytes Relative 24.3 % LAB HEMETOLOGY METHOD 03/05/2025 2:30 PM [facility] Monocytes Relative 7.8 % LAB HEMETOLOGY METHOD 03/05/2025 2:30 PM [facility] Eosinophils Relative 1.9 % LAB HEMETOLOGY METHOD 03/05/2025 2:30 PM [facility] Basophils Relative 0.6 % LAB HEMETOLOGY METHOD 03/05/2025 2:30 PM [facility] Immature Granulocytes Relative 0.4 % LAB HEMETOLOGY METHOD 03/05/2025 2:30 PM [facility] Neutrophils Absolute 6.43 1.50 - 7.00 K/mcL LAB HEMETOLOGY METHOD 03/05/2025 2:30 PM [facility] Lymphocytes Absolute 2.41 1.00 - 5.00 K/mcL LAB HEMETOLOGY METHOD 03/05/2025 2:30 PM [facility] Monocytes Absolute 0.77 0.20 - 1.00 K/mcL LAB HEMETOLOGY METHOD 03/05/2025 2:30 PM [facility] Eosinophils Absolute 0.19 0.00 - 0.50 K/mcL LAB HEMETOLOGY METHOD 03/05/2025 2:30 PM [facility] Basophils Absolute 0.06 0.00 - 0.20 K/mcL LAB HEMETOLOGY METHOD 03/05/2025 2:30 PM [facility] Immature Granulocytes Absolute 0.04(H) 0.00 - 0.03 K/mcL LAB HEMETOLOGY METHOD 03/05/2025 2:30 PM [facility] Blood Venous blood specimen / Unknown Venipuncture / Unknown 03/05/2025 1:24 PM EDT 03/05/2025 1:24 PM EDT us Christina ANTUNEZ LAB BLOOD ORDERABLES Final R esult [facility] [address] [place] [address], [place] [phone] from Last 3 Months Insurance [employer] Advance Directives Documents on File Type Date Recorded 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 Care Teams Employment Service Specialist Relationship Specialty Start Date End Date Nell Chatterjee MD [address] [place] [address] [place] [address] PCP - General 03/22/23
--- OUTSIDE RECORDS SUMMARY | 2025-04-21 12:07 | XMS_ITS | Clinical Summary ---
Author Organization [facility] Address [address] [place] [address] Care Team Providers Care General Assistant Name Role Phone Nell Chatterjee MD Primary Care Provider [phone] Allergies Active Allergy Reactions Criticality Noted Date [...] 5 07/11/2022 Active ergocalciferol (VITAMIN D2) capsule 17596 units Take 1 capsule (50,000 Units total) [...] age to complete this topic Care Teams General Assistant Relationship Specialty Start Date End Date Nell Chatterjee MD [address] [facility] [address] [place] [id number] PCP - General Internal Medicine 03/22/23
== END 2025-04-21 11:13 | disposition home or self-care (01) ==
LOC: HO.PMC 10:51
PROVIDERS: PCP Nurse Practitioner Family; Visit Provider Nurse Practitioner Family
DX: M53.3 Sacrococcygeal disorders, not elsewhere classified (principal); M54.50 Low back pain, unspecified; G89.4 Chronic pain syndrome; M51.369 Other intervertebral disc degeneration, lumbar region without mention of lumbar back pain or lower extremity pain; M47.816 Spondylosis without myelopathy or radiculopathy, lumbar region
CPT/HCPCS: 99214; G2211

== ENCOUNTER → 2025-04-21 10:50 | Outpatient (BNVA) | payer OTHER, SELFPAY | PROVIDERS: PCP Nurse Practitioner Family; Visit Provider Nurse Practitioner Family | DX: M53.3 Sacrococcygeal disorders, not elsewhere classified (principal); G89.4 Chronic pain syndrome; M51.360 Other intervertebral disc degeneration, lumbar region with discogenic back pain only; M47.816 Spondylosis without myelopathy or radiculopathy, lumbar region | CPT/HCPCS: 99212 ==